=== PATIENT | male | born 2000 | race Caucasian/White ===

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

== ENCOUNTER 2022-03-18 17:40 | Emergency (ER) | payer MEDICAID, SELFPAY ==
--- NOTE | 2022-03-18 17:45 | XRR_ITS ---
PROCEDURE INFORMATION: Exam: XR Chest Exam date and time: 03/18/2022 6:42 PM Age: 21 years old Clinical indication: Other: Hematemsis; Additional info: Hematemesis TECHNIQUE: Imaging protocol: Radiologic exam of the chest. Views: 1 view. COMPARISON: CR (CHEST, ) 08/08/2021 8:43 PM FINDINGS: Limitations: Patient is rotated towards the right. Lungs: Visualized portions of the lungs are clear. Pleural spaces: Unremarkable. No pleural effusion. No pneumothorax. Heart/Mediastinum: Heart is within normal limits of size. Bones/joints: There are post surgical changes of posterior spinal fusion with pedicle screws and metallic rods unchanged from previous. XR/XR chest 1V portable [id number] IMPRESSION: No acute infiltrate.
[2022-03-18 17:47] VITALS: BP 92/64; PULSE 63; RESP 16; TEMP 36.6; O2SAT 95; BMI 21.7
--- NOTE | 2022-03-18 17:53 | W.ED.GIBLEED ---
HPI - GI Bleed General: Chief complaint: GI Bleed Stated complaint: GI bleed Time Seen by Provider: 03/18/22 17:53 Limitations: physical limitation History of Present Illness: Mr. Hernández is a 21-year-old male with reported history of cerebral palsy who presents to the emergency department due to hematemesis/coffee-ground emesis. Per chart review he had a similar episode in July 2021. History is otherwise limited by patient's baseline physical state and no supplemental information regarding amount, times, exacerbating, alleviating, or other factors is available. Review of Systems General: Reports: ROS unobtainable due to medical condition PFS ED PFSH: Medical History Cerebral palsy Gastritis Surgical History Surgical history unknown Social History Housing: [facility] Physical Exam Const: COMMON NORMALS: alert EXAM LIMITATIONS: physical limitations and other limitations HENMT: COMMON NORMALS: normocephalic and atraumatic HEAD & SCALP: normocephalic and atraumatic THROAT: posterior oropharynx normal Eye: COMMON NORMALS: conjunctivae normal CONJUNCTIVA: Yes conjunctivae normal SCLERA: sclerae normal Neck/C-Spine: COMMON NORMALS: supple GENERAL: Yes trachea midline Resp: COMMON NORMALS: normal respiratory effort and clear to auscultation bilaterally AUSCULTATION: clear to auscultation bilaterally Cardio: COMMON NORMALS: regular rate and regular rhythm RATE: regular rate RHYTHM: regular rhythm GI: COMMON NORMALS: Soft to palpation PALPATION: Yes Soft to palpation and No Tenderness to palpation present (GI) Extremity: GENERAL: Yes normal exam except as noted and No edema Neuro: SENSORIUM/ORIENTATION: Yes alert and No Orientation impaired Course ED course: - Patient was seen and evaluated by me at bedside - Patient placed on cardiac monitors, IV access obtained - Initial evaluation notable for exam as above. Patient presents with some dark brown emesis on clothing - Labs and xrays personally interpreted by me - Fluids, antiemetic, and proton pump inhibitor given - Labs notable for mild leukocytosis. Metabolic panel notable for some intravascular hemoconcentration which should improve with IV fluids. Repeat hemoglobin approximately 4 hours later similar given IV fluid administration. - Imaging notable for no lobar consolidation or pneumothorax on chest x-ray. No acute finding on CT chest abdomen pelvis. - Upon serial reexamination after treatment the patient was improved without recurrence of hematemesis. Patient does have similar history - Based on patient history, evaluation, and testing as interpreted the most likely cause of the patient's condition is hematemesis/GI bleed. - The results of ED evaluation were discussed with the patient's mother via telephone including possible disposition options. Given stability in hemoglobin and no recurrence she is comfortable with patient being discharged and to have outpatient follow-up for endoscopy. I discussed prescriptions and/or symptomatic cares (if applicable) including appropriate and responsible use, followup plan, and return precautions. - Patient discharged in satisfactory condition. Note: Click bubbles or prepopulated lopez in note writing are used for assistance with data collection and billing and are inherently more limited than narrative and other text portions of this note. Please use narrative for additional clinical history and defer to narrative/free test for any case of contradictory information. If information appears in only free text or click bubble it should be considered present or absent as reported. Please contact note typewriter aligner for clarifications of clinical information or contradictory information. MDM is a brief summary, contradictory or erroneous seeming information should be clarified and full note should be reviewed. Vital Signs: Vital signs: Vital Signs Temperature 97.9 F 03/18/22 17:47 Pulse Rate 105 H 03/18/22 23:00 Respiratory Rate 12 03/18/22 22:00 Blood Pressure 153/85 03/18/22 23:00 Pulse Oximetry 93 03/18/22 23:00 Oxygen Delivery Me thod 03/18/22 20:50 MDM - GI Bleed Medical Decision Making 21-year-old male with complex past medical history presenting with hematemesis. He did have history of similar related gastritis. Hemoglobin stable without recurrence of hematemesis while under ED observation. Discussed with patient's mother who is comfortable with outpatient follow-up. Strict return precautions given. Medical Records I reviewed the patient's medical records. Lab Data I reviewed the patient's lab results. : 03/18/22 22:05 03/18/22 18:16 Radiology Impressions Chest X-Ray 03/18/22 17:45 IMPRESSION: No acute infiltrate. Chest/Abdomen/Pelvis CT 03/18/22 18:31 IMPRESSION: 1. Postsurgical changes in the thoracic spine. 2. No acute findings in the chest IMPRESSION: No acute findings in the abdomen pelvis. Laboratory Results WBC 14.4 10^3/uL (4.5-13.0) H 03/18/22 18:16 RBC 5.55 10^6/uL (4.1-5.3) H 03/18/22 18:16 Hgb 13.4 g/dL (11.7-16.6) 03/18/22 22:05 Hct 42.7 % (42.0-52.0) 03/18/22 22:05 MCV 85.4 fl (80-94) 03/18/22 18:16 MCH 26.5 pg (28.0-34.0) L 03/18/22 18:16 MCHC 31.0 g/dL (30.0-36.0) 03/18/22 18:16 RDW 14.4 % (12.1-15.1) 03/18/22 18:16 Plt Count 375 10^3/cmm (130-400) 03/18/22 18:16 MPV 10.5 fL (7.4-10.4) H 03/18/22 18:16 Neut % (Auto) 78.8 % 03/18/22 18:16 Lymph % (Auto) 11.9 % 03/18/22 18:16 [place] % (Auto) 8.5 % 03/18/22 18:16 Eos % (Auto) 0.3 % 03/18/22 18:16 Baso % (Auto) 0.3 % 03/18/22 18:16 Neut # (Auto) 11.33 10^3/uL (1.8-8.0) H 03/18/22 18:16 Lymph # (Auto) 1.7 10^3/uL (1.5-6.5) 03/18/22 18:16 [place] # (Auto) 1.2 10^3/uL (0.2-0.9) H 03/18/22 18:16 Eos # (Auto) 0.1 10^3/uL (0.0-0.8) 03/18/22 18:16 Baso # (Auto) 0.1 10^3/uL (0.0-0.1) 03/18/22 18:16 Nucleated RBC % (auto) 0 % 03/18/22 18:16 Nucleated RBCs # 0.0 /100WBC 03/18/22 18:16 PT 14.00 SECONDS (12.1-14.9) 03/18/22 18:16 INR 1.05 (0.8-1.2) 03/18/22 18:16 APTT 25.2 SECONDS (23.9-36.7) 03/18/22 18:16 Sodium 148 mmol/L (136-145) H 03/18/22 18:16 Potassium 3.8 mmol/L (3.5-5.1) 03/18/22 18:16 Chloride 108 mmol/L (98-107) H 03/18/22 18:16 Carbon Dioxide 26 mmol/L (22-29) 03/18/22 18:16 Anion Gap 17.8 (5-19) 03/18/22 18:16 BUN 14 mg/dL (6-20) 03/18/22 18:16 Creatinine 0.4 mg/dL (0.7-1.2) L 03/18/22 18:16 GFR Calculation 277.1 mL/min (90-130) H 03/18/22 18:16 Glucose 123 mg/dL (65-115) H 03/18/22 18:16 Calculated Osmolality 308 mOsm/kg (285-295) H 03/18/22 18:16 Calcium 9.4 mg/dL (8.5-10.5) 03/18/22 18:16 Total Bilirubin 0.4 mg/dL (0.15-1.2) 03/18/22 18:16 AST 19 U/L (0-40) 03/18/22 18:16 ALT 33 U/L (0-41) 03/18/22 18:16 Alkaline Phosphatase 108 IU/L (40-130) 03/18/22 18:16 Total Protein 8.0 g/dL (6.6-8.7) 03/18/22 18:16 Albumin 4.4 g/dL (3.5-5.2) 03/18/22 18:16 Globulin 3.6 g/dL (1.3-4.6) 03/18/22 18:16 Blood Type O Positive 03/18/22 18:16 Rho(D) Type Positive 03/18/22 18:16 Antibody Screen Negative 03/18/22 18:16 Discharge Plan Discharge Patient Disposition: Home Clinical Impression: Coffee ground vomiting, Cerebral palsy, Gastritis Condition: Stable Prescriptions: New omeprazole 20 mg tablet,delayed release (DR/EC) 20 mg PO BID 30 Days Qty: 60 0RF No Action Prevacid 30 mg capsule,delayed release(DR/EC) 30 mg PO DAILY Qty: 30 0RF Zofran 4 mg tablet 4 mg PO Q6H PRN (Reason: nausea and vomiting) Qty: 10 0RF Discharge Orders: Discharge ED (Routine); Ordered 03/18/22 Ordered By: Ender Ga Referrals: Maritza Teixeira MD [Primary Care Provider] - Discharge Diet: Usual diet Discharge Activity: Resume usual activity Patient Instructions: Diet for Stomach Ulcers and Gastritis (ED), Hematemesis (ED) Activity Restrictions/Additional Instructions: Thank you for visiting the emergency department. You were seen and evaluated for coffee-ground emesis concerning for GI bleeding. The exact cause of the symptoms is unclear however, after discussion with your mother, does not require inpatient management at this time. I will message case management for follow-up for consideration of endoscopy. You should be contacted regarding this. Please follow-up with your primary care provider. Please return to the emergency department for recurrent symptoms, abnormal vital signs, or anything else that you are concerned about a feel needs emergency department evaluation. Coding Level of Care Code ED Tile Ditcher for Terrell Verma
[2022-03-18] MEDS: ondansetron 2 mg/ML SDV 2 mL 4 MG IVP (18:21)
[2022-03-18] MEDS: sodium chloride 0.9% 1,000 ML 999 ML IV (18:22)
[2022-03-18] MEDS: pantoprazole 40 mg SDV 80 MG IVP (18:22)
[2022-03-18 18:27] LABS: Basophils # 0.1 10^3/uL (0.0-0.1); Basophils % 0.3 %; Eosinophils # 0.1 10^3/uL (0.0-0.8); Eosinophils % 0.3 %; Hematocrit 47.4 % (42.0-52.0); Hemoglobin 14.7 g/dL (11.7-16.6); Lymphocytes # 1.7 10^3/uL (1.5-6.5); Lymphocytes % 11.9 %; Mean Corpuscular Hemoglobin 26.5 pg (28.0-34.0); Mean Corpuscular Volume 85.4 fl (80-94); Mean Platelet Volume 10.5 fL (7.4-10.4); Monocytes # 1.2 10^3/uL (0.2-0.9); Monocytes % 8.5 %; Neutrophils # 11.33 10^3/uL (1.8-8.0); Neutrophils % 78.8 %; Nucleated Red Blood Cells % 0 %; Platelet Count 375 10^3/cmm (130-400); Red Blood Count 5.55 10^6/uL (4.1-5.3); Red Cell Distribution Width 14.4 % (12.1-15.1); White Blood Count 14.4 10^3/uL (4.5-13.0)
--- NOTE | 2022-03-18 18:30 | PC.NURSE ---
Patient had one episode of projectile vomiting coffee ground emesis while this RN at bedside. RN and tech cleaned patient. Gown and bed linens were changed. Patient received nausea meds
--- NOTE | 2022-03-18 18:31 | CTR_ITS ---
PROCEDURE INFORMATION: Exam: CT Chest With Contrast; Diagnostic Exam date and time: 03/18/2022 7:51 PM Age: 21 years old Clinical indication: Abdominal pain; Sternal or substernal pain; Prior surgery; Additional info: Gi bleed TECHNIQUE: Imaging protocol: Diagnostic computed tomography of the chest with contrast. Radiation optimization: All CT scans at this facility use at least one of these dose optimization techniques: automated exposure control; mA and/or kV adjustment per patient size (includes targeted exams where dose is matched to clinical indication); or iterative reconstruction. Contrast material: OMNI 350; Contrast volume: 80 ml; Contrast route: INTRAVENOUS (IV); COMPARISON: CR (CHEST, ) 03/18/2022 6:42 PM RADIATION DOSE METRICS: Total DLP (mGy-cm): 930.05 FINDINGS: Limitations: Study somewhat limited due to streak artifact created by the patient being scanned with the arms at the sides. Lungs: Visualized portions of the lungs are clear. Pleural spaces: Unremarkable. No pneumothorax. No pleural effusion. Heart: Heart is within normal limits of size. Mediastinal space: There is no evidence of mediastinal fluid, masses, or gas. Lymph nodes: There is no evidence of lymphadenopathy. Vasculature: There is no thoracic aortic aneurysm or dissection. Bones/joints: There are postsurgical changes of thoracic spine fusion with posterior metallic rods and pedicle screws in the pedicles at multiple levels. There is mild scoliosis concave to the left. Soft tissues: Unremarkable. PROCEDURE INFORMATION: Exam: CT Abdomen And Pelvis With Contrast Exam date and time: 03/18/2022 7:51 PM Age: 21 years old Clinical indication: Abdominal pain; Sternal or substernal pain; Prior surgery; Additional info: Gi bleed TECHNIQUE: Imaging protocol: Computed tomography of the abdomen and pelvis with contrast. Radiation optimization: All CT scans at this facility use at least one of these dose optimization techniques: automated exposure control; mA and/or kV adjustment per patient size (includes targeted exams where dose is matched to clinical indication); or iterative reconstruction. Contrast material: OMNI 350; Contrast volume: 80 ml; Contrast route: INTRAVENOUS (IV); COMPARISON: CT abdomen pelvis w con* [id number] 08/08/2021 11:01 PM RADIATION DOSE METRICS: Total DLP (mGy-cm): 930.05 FINDINGS: Limitations: Study somewhat limited due to streak artifact created by the patient being scanned with the arms at the sides. There is also streak artifact caused by the metallic spinal hardware. Tubes, catheters and devices: There is a [employer] shunt catheter loops in the pelvis. Liver: There is no focal abnormality within the liver. Gallbladder and bile ducts: The gallbladder is normal. Pancreas: The pancreas is normal. Spleen: The spleen is normal. Adrenal glands: The adrenal glands are normal. Kidneys and ureters: The kidneys are normal. There is no evidence of hydronephrosis. There is no evidence of renal or ureteral calcifications. Stomach and bowel: There is no evidence of colitis/diverticulitis. There is no evidence of intestinal obstruction. Appendix: A normal appendix is identified. A normal appendix is identified. Intraperitoneal space: There is no evidence of free intraperitoneal fluid. Vasculature: Unremarkable. No abdominal aortic aneurysm. Lymph nodes: There is no evidence of lymphadenopathy. Urinary bladder: Unremarkable as visualized. Reproductive: Unremarkable as visualized. Bones/joints: There are postsurgical changes of old healed bilateral femoral osteotomies with internal fixation with metallic hardware. There are stable findings of thoracolumbar posterior spinal fusion with posterior metallic rods and pedicle screws in the pedicles extending to the L4 level. Soft tissues: Unremarkable. CT/CT chest abd pel w con* IMPRESSION: 1. Postsurgical changes in the thoracic spine. 2. No acute findings in the chest IMPRESSION: No acute findings in the abdomen pelvis.
[2022-03-18 18:34] VITALS: BP 164/91; PULSE 102; RESP 20; O2SAT 95
[2022-03-18 18:45] LABS: INR 1.05 (0.8-1.2)
[2022-03-18 18:46] LABS: Partial Thromboplastin Time 25.2 SECONDS (23.9-36.7)
[2022-03-18 18:54] LABS: Alanine Aminotransferase 33 U/L (0-41); Albumin Level 4.4 g/dL (3.5-5.2); Alkaline Phosphatase 108 IU/L (40-130); Aspartate Amino Transferase 19 U/L (0-40); Blood Urea Nitrogen 14 mg/dL (6-20); Calcium 9.4 mg/dL (8.5-10.5); Carbon Dioxide 26 mmol/L (22-29); Chloride 108 mmol/L (98-107); Globulin 3.6 g/dL (1.3-4.6); Glomerular Filtration Rate 277.1 mL/min (90-130); Glucose 123 mg/dL (65-115); Osmolality Calculated 308 mOsm/kg (285-295); Sodium 148 mmol/L (136-145); Total Bilirubin 0.4 mg/dL (0.15-1.2)
--- NOTE | 2022-03-18 19:02 | PC.NURSE ---
Report given to Ronda Monterroso
[2022-03-18 19:04] LABS: Anion Gap 17.8 (5-19); Potassium 3.8 mmol/L (3.5-5.1)
[2022-03-18] MEDS: iohexol 350 mg/mL 100 mL Btl IV (20:07)
[2022-03-18 20:50] VITALS: BP 125/79; PULSE 97; O2SAT 92
[2022-03-18 22:00] VITALS: BP 142/83; PULSE 99; RESP 12; O2SAT 87
[2022-03-18 22:43] LABS: Hematocrit 42.7 % (42.0-52.0); Hemoglobin 13.4 g/dL (11.7-16.6)
[2022-03-18 23:00] VITALS: BP 153/85; PULSE 105; O2SAT 93
--- NOTE | 2022-03-21 13:42 | DCPLANNER ---
Addendum entered by Danae Costello 04/05/22 16:43: Patient had a follow up appointment scheduled with general surgery - appointment was cancelled Addendum entered by Danae Costello 03/24/22 16:22: Patient has a follow up appointment scheduled for Wednesday March 30, 2022 at 3:[address] Sigala at [facility]. Clinic will call patient with appointment information. Original Note: manager research development had message to schedule a follow up appointment for patient with general surgery. manager research development sent patients information to the front office staff at general surgery. Patients information will be printed and reviewed. Clinic will call patient with appointment information.
== END 2022-03-19 04:21 | disposition home or self-care (01) ==
PROVIDERS: Emergency Provider Emergency Medicine; PCP Specialist
DX: K29.70 Gastritis, unspecified, without bleeding (principal); G80.9 Cerebral palsy, unspecified; R11.10 Vomiting, unspecified
CPT/HCPCS: 71045; 71260; 74177; 80053; 85014; 85018; 85025; 85610; 85730; 86850; 86900; 96374; 96375; 99285; C9113; J2405; J7030; Q9967

== ENCOUNTER 2022-05-08 14:07 | Emergency (ER) | payer MEDICAID, SELFPAY ==
[2022-05-08 14:08] VITALS: BP 140/106; PULSE 110; RESP 16; TEMP 36.6; O2SAT 97; BMI 19.3
--- NOTE | 2022-05-08 14:25 | W.ED.NAVMDI ---
HPI - Nausea/Vomiting/Diarrhea General: Chief complaint: Nausea/Vomiting/Diarrhea Stated complaint: dark emesis Time Seen by Provider: 05/08/22 14:22 Source: EMS and other (LTCF) Mode of arrival: EMS Limitations: altered mental status History of Present Illness: This patient was transferred to our emergency department from a local [facility] care facility. Patient is a TBI patient and is nonverbal and otherwise requires total care. He was noted by staff to have dark emesis on more than 1 occasion this morning and no interest in eating. He was transported by EMS to our facility for evaluation of that condition. Review of past chart reveals that he has had an episode of gastritis with similar presentation treated back at the [facility]. MD elicited complaint: vomiting Description of vomiting: coffee grounds Review of Systems General: Reports: ROS unobtainable due to medical condition and ROS unobtainable due to mental status [facility] PFSH: Medical History Cerebral palsy Gastritis Surgical History Surgical history unknown Social History Housing: Prison Physical Exam Narrative: EXAM NARRATIVE: Patient is noted to be alert with spontaneous eye opening. He does verbalize nonsensical responses to questions and stimuli. Const: COMMON NORMALS: no acute distress NUTRITIONAL APPEARANCE: thin ORIENTATION/CONSCIOUSNESS: Yes awake HENMT: COMMON NORMALS: normocephalic, atraumatic, moist oral mucous membranes and oropharynx normal HEAD & SCALP: normocephalic and atraumatic Eye: COMMON NORMALS: Equal, round and reactive pupils present, conjunctivae normal and no scleral icterus CONJUNCTIVA: Yes conjunctivae normal PUPIL: Yes Equal, round and reactive pupils present Neck/C-Spine: COMMON NORMALS: supple and no JVD Chest: COMMONS NORMALS: normal inspection of the chest Resp: COMMON NORMALS: normal respiratory effort and clear to auscultation bilaterally AUSCULTATION: clear to auscultation bilaterally Cardio: COMMON NORMALS: no JVD, regular rate, No murmurs present (Cardio) and Peripheral pulses 2+ throughout RATE: regular rate PERIPHERAL PULSES: Peripheral pulses 2+ throughout GI: COMMON NORMALS: Normal to inspection, nondistended, normoactive bowel sounds present, Soft to palpation, non-tender and no masses PALPATION: Yes Soft to palpation Back/Pelvis: OTHER: He has some postural curvature in his axial spine. No step-offs noted. Extremity: NARRATIVE EXTREMITY EXAM: He has noted to be in a flexion predominant body habitus with flexion at the hip as well as the knee and the wrists and elbows. No deformity otherwise. Decreased muscle bulk noted. Skin: COMMON NORMALS: no rashes or lesions noted, no jaundice and no petechiae GENERAL SKIN EXAM: no rashes or lesions noted Course Reevaluation(s): Reevaluation #1: He remained stable. No more emesis since shortly after arrival to the emergency department. Plan will be to observe him in the emergency department to ensure that he remains stable without any ongoing emesis. Hemoglobin is reassuring at this time. Time: 15:54 Reevaluation #2: Continues to remain alert at his usual baseline mentation. No more emesis noted in the last hour. Again review of his laboratories revealed him appreciably within his normal range. Patient has been observed in the emergency department and evaluated I think it is reasonable for us to put him back on a proton pump inhibitor with an H2 dmitry to control his symptoms for the next 30 days. This is similar to prior occurrences that he is had in the past. Do not feel that any prolonged emergency department evaluation or observation or hospitalization is indicated at this time as he is returning back to a controlled environment. Time: 16:41 Vital Signs: Vital signs: Vital Signs Temperature 97.8 F 05/08/22 14:08 Pulse Rate 110 H 05/08/22 14:08 Respiratory Rate 16 05/08/22 14:08 Blood Pressure 140/106 05/08/22 14:08 Pulse Oximetry 97 05/08/22 14:08 Oxygen Delivery Me thod 05/08/22 14:08 MDM - Nausea/Vomiting/Diarrhea Medical Decision Making Patient with history of TBI with requires total care at a local long-term care facility was noted to have episodes of dark emesis. Patient was evaluated in the emergency department and found to be stable without any ongoing emesis. Hemoglobin and other parameters were within the patient's prior findings and this current history is recurrence of prior episodes of gastritis with hematemesis. We will go ahead and plan for empiric therapy and returning back to long-term care facility with return precautions. Lab Data : 05/08/22 14:37 05/08/22 14:37 Laboratory Results WBC 15.3 10^3/uL (4.5-13.0) H 05/08/22 14:37 RBC 5.39 10^6/uL (4.1-5.3) H 05/08/22 14:37 Hgb 13.8 g/dL (11.7-16.6) 05/08/22 14:37 Hct 44.4 % (42.0-52.0) 05/08/22 14:37 MCV 82.4 fl (80-94) 05/08/22 14:37 MCH 25.6 pg (28.0-34.0) L 05/08/22 14:37 MCHC 31.1 g/dL (30.0-36.0) 05/08/22 14:37 RDW 14.1 % (12.1-15.1) 05/08/22 14:37 Plt Count 438 10^3/cmm (130-400) H 05/08/22 14:37 MPV 10.9 fL (7.4-10.4) H 05/08/22 14:37 Neut % (Auto) 85.1 % 05/08/22 14:37 Lymph % (Auto) 7.5 % 05/08/22 14:37 Whiteside % (Auto) 6.7 % 05/08/22 14:37 Eos % (Auto) 0.1 % 05/08/22 14:37 Baso % (Auto) 0.3 % 05/08/22 14:37 Neut # (Auto) 13.02 10^3/uL (1.8-8.0) H 05/08/22 14:37 Lymph # (Auto) 1.1 10^3/uL (1.5-6.5) L 05/08/22 14:37 Whiteside # (Auto) 1.0 10^3/uL (0.2-0.9) H 05/08/22 14:37 Eos # (Auto) 0.0 10^3/uL (0.0-0.8) 05/08/22 14:37 Baso # (Auto) 0.1 10^3/uL (0.0-0.1) 05/08/22 14:37 Nucleated RBC % (auto) 0 % 05/08/22 14:37 Nucleated RBCs # 0.0 /100WBC 05/08/22 14:37 Sodium 147 mmol/L (136-145) H 05/08/22 14:37 Potassium 3.2 mmol/L (3.5-5.1) L 05/08/22 14:37 Chloride 103 mmol/L (98-107) 05/08/22 14:37 Carbon Dioxide 30 mmol/L (22-29) H 05/08/22 14:37 Anion Gap 17.2 (5-19) 05/08/22 14:37 BUN 9 mg/dL (6-20) 05/08/22 14:37 Creatinine 0.5 mg/dL (0.7-1.2) L 05/08/22 14:37 GFR Calculation 214.2 mL/min (90-130) H 05/08/22 14:37 Glucose 127 mg/dL (65-115) H 05/08/22 14:37 POC Glucose 132 mg/dL (70-110) H 05/08/22 14:42 Calculated Osmolality 304 mOsm/kg (285-295) H 05/08/22 14:37 Calcium 9.8 mg/dL (8.5-10.5) 05/08/22 14:37 Total Bilirubin 0.4 mg/dL (0.15-1.2) 05/08/22 14:37 AST 18 U/L (0-40) 05/08/22 14:37 ALT 30 U/L (0-41) 05/08/22 14:37 Alkaline Phosphatase 105 U/L (40-130) 05/08/22 14:37 Total Protein 8.2 g/dL (6.6-8.7) 05/08/22 14:37 Albumin 4.8 g/dL (3.5-5.2) 05/08/22 14:37 Globulin 3.4 g/dL (1.3-4.6) 05/08/22 14:37 Blood Type O Positive 05/08/22 14:37 Rho(D) Type Positive 05/08/22 14:37 Antibody Screen Negative 05/08/22 14:37 Discharge Plan Discharge Patient Disposition: LTCH w Plan Readm Clinical Impression: Gastritis, Cerebral palsy Condition: Stable Prescriptions: New famotidine [Pepcid] 40 mg tablet 40 mg PO BID 56 Days Qty: 112 0RF No Action Prevacid 30 mg capsule,delayed release(DR/EC) 30 mg PO DAILY Qty: 30 0RF Zofran 4 mg tablet 4 mg PO Q6H PRN (Reason: nausea and vomiting) Qty: 10 0RF Discharge Orders: Discharge ED (Routine); Ordered 05/08/22 Ordered By: Adriel Marcus Referrals: Maritza Teixeira MD [Primary Care Provider] - Discharge Diet: Advance as tolerated and Full LIquid Activity Restrictions/Additional Instructions: He is to continue the Prevacid in addition to Pepcid twice daily for the next 8 weeks. Have his attending physician reevaluate his medications in 2 months. He may return to the emergency department if he develops any new or other concerning symptoms at any time. Coding Level of Care Code ED Photovoltaic Installation Technician for Terrell Fwtamera Exam Comprehensive
[2022-05-08] MEDS: sodium chloride 0.9% 1,000 ML 75 ML IV (14:52)
[2022-05-08] MEDS: pantoprazole 40 mg SDV 80 MG IVP (14:52)
[2022-05-08 14:56] LABS: Basophils # 0.1 10^3/uL (0.0-0.1); Basophils % 0.3 %; Eosinophils % 0.1 %; Hematocrit 44.4 % (42.0-52.0); Hemoglobin 13.8 g/dL (11.7-16.6); Lymphocytes # 1.1 10^3/uL (1.5-6.5); Lymphocytes % 7.5 %; Mean Corpuscular HGB Conc 31.1 g/dL (30.0-36.0); Mean Corpuscular Hemoglobin 25.6 pg (28.0-34.0); Mean Corpuscular Volume 82.4 fl (80-94); Mean Platelet Volume 10.9 fL (7.4-10.4); Monocytes % 6.7 %; Neutrophils # 13.02 10^3/uL (1.8-8.0); Neutrophils % 85.1 %; Nucleated Red Blood Cells % 0 %; Platelet Count 438 10^3/cmm (130-400); Red Blood Count 5.39 10^6/uL (4.1-5.3); Red Cell Distribution Width 14.1 % (12.1-15.1); White Blood Count 15.3 10^3/uL (4.5-13.0)
[2022-05-08 14:59] LABS: Glucose Point of Care 132 mg/dL (70-110)
[2022-05-08 15:14] LABS: Alanine Aminotransferase 30 U/L (0-41); Albumin Level 4.8 g/dL (3.5-5.2); Alkaline Phosphatase 105 U/L (40-130); Anion Gap 17.2 (5-19); Aspartate Amino Transferase 18 U/L (0-40); Blood Urea Nitrogen 9 mg/dL (6-20); Calcium 9.8 mg/dL (8.5-10.5); Carbon Dioxide 30 mmol/L (22-29); Chloride 103 mmol/L (98-107); Globulin 3.4 g/dL (1.3-4.6); Glomerular Filtration Rate 214.2 mL/min (90-130); Glucose 127 mg/dL (65-115); Osmolality Calculated 304 mOsm/kg (285-295); Potassium 3.2 mmol/L (3.5-5.1); Sodium 147 mmol/L (136-145); Total Bilirubin 0.4 mg/dL (0.15-1.2); Total Protein 8.2 g/dL (6.6-8.7)
--- NOTE | 2022-05-08 17:08 | PC.NURSE ---
REPORT CALLED TO AMBREEN ASTORGA AT [facility].
[2022-05-08 19:41] VITALS: BP 139/99; PULSE 99; RESP 18; O2SAT 97
== END 2022-05-08 19:46 ==
PROVIDERS: Emergency Provider Emergency Medicine; PCP Specialist
DX: K29.70 Gastritis, unspecified, without bleeding (principal); G80.9 Cerebral palsy, unspecified
CPT/HCPCS: 36416; 80053; 82962; 85025; 86850; 86900; 96374; 99284; C9113; J7030

== ENCOUNTER → 2022-05-12 14:05 | Outpatient (BNVA) | payer MEDICAID, SELFPAY | PROVIDERS: PCP Family Medicine; Visit Provider Surgery | DX: K29.70 Gastritis, unspecified, without bleeding (principal); R11.2 Nausea with vomiting, unspecified | CPT/HCPCS: 99203 ==

== ENCOUNTER 2022-05-19 06:17 | Day surgery (SDC) | payer MEDICAID, SELFPAY ==
[2022-05-17 13:22] VITALS: BMI 21.3
[2022-05-19 07:00] VITALS: BP 117/64; PULSE 103; RESP 18; TEMP 36.6; O2SAT 96
[2022-05-19] MEDS: sodium chloride 0.9% 1,000 ML 30 ML IV (07:00)
--- NOTE | 2022-05-19 07:21 | W.PM.OPSUD ---
Surgery/Procedure H&P Update DATE OF PROCEDURE: May 19, 2022 DATE H&P PERFORMED: 05/12/22 H&P UPDATE INFORMATION: I have reviewed H&P completed within last 30 days, I have examined patient prior to procedure and Changes to prior documentation as noted here (I was able to get a hold of patient's mom over the phone in the presence of the nursing staff to obtain an informed consent for the EGD. And mom did agree to proceed accordingly.) PREOP DIAGNOSIS: Hematemesis PRIMARY INDICATION FOR PROCEDURE: The same PLANNED PROCEDURE: Operation Date: 05/19/22 08:00 Proposed Procedures p EGD 78131,K29.70(Not Applicable) - Hernan Sigala MD
[2022-05-19 08:12] VITALS: BP 99/61; PULSE 78; RESP 12; TEMP 36.1; O2SAT 96
[2022-05-19 08:29] VITALS: BP 129/81; PULSE 79; RESP 16; O2SAT 97
--- NOTE | 2022-05-19 14:41 | ANE.PACU2 ---
Inpatient post-anesthesia follow up: Airway intact: Yes Vital signs: Temperature 97 F Pulse Rate 79 Respiratory Rate 16 Blood Pressure 129/81 Pulse Oximetry 97 Oxygen Delivery Me thod Room Air Oxygen Flow Rate Fraction of Inspir ed Oxygen Hydration adequate: Yes Nausea and vomiting: No Pain level: 1 Mental status: Baseline
--- NOTE | 2022-05-19 14:42 | ANES.PREANE2 ---
Pre-Anesthetic Assessment Height/Weight: Height 1.68 m Weight 59.874 kg Temp Pulse Resp BP Pulse Ox O2 Del Method 97 F L 79 16 129/81 97 05/19/22 08:12 05/19/22 08:29 05/19/22 08:29 05/19/22 08:29 05/19/22 08:29 05/19/22 08:29 Preop Diagnosis: Hematemesis Operation Date: 05/19/22 08:00 Proposed Procedures p EGD 39624,K29.70(Not Applicable) - Hernan Sigala MD Familial anesthetic complications: none Was Beta Anatoly taken within 24 hours: N/A Was Clonidine taken within 24 hours: N/A Last intake: Intake Last Liquid Date 05/18/22 Last Solid Date 05/18/22 Social No alcohol and No tobacco Exam clear to auscultation bilaterally and regular rate & rhythm Airway Submandibular: within normal limits Cervical ROM: within normal limits Mallampati: Class II GI Gastroesophageal Reflux Disease Neuropsych CP Anesthetic Plan ASA status: 3 Anesthesia: MAC Medications/Allergies Home Medications Medication Instructions Recorded Confirmed Last Taken Type famotidine 40 mg tablet (Pepcid) 40 mg PO BID 8 weeks #112 tabs 05/08/22 05/19/22 05/18/22 Rx bisacodyl 10 mg rectal suppository 10 mg SC DAILY PRN Constipation 05/12/22 05/19/22 05/18/22 History melatonin 1 mg/mL oral liquid 1 mg PO DAILY 05/12/22 05/19/22 05/18/22 History pantoprazole 40 mg granules 40 mg PO DAILY 05/12/22 05/19/22 05/18/22 History delayed-release for susp in packet (Protonix) polyethylene glycol 3350 8.5 gram 17 g PO DAILY 05/12/22 05/19/22 05/18/22 History oral powder packet ondansetron HCl 4 mg tablet 4 mg PO Q8H PRN nausea and vomiting 05/17/22 05/19/22 05/18/22 History Allergies Allergy/AdvReac Type Severity Reaction Status Date / Time metoclopramide [From Reglan] Allergy seizure Verified 05/19/22 06:59 PFSH Anesthesia Medical History Cerebral palsy Gastritis Surgical History Surgical history unknown Social History Smoking and tobacco status: never smoked Housing: [facility] Data Anesthesia Cardiac Studies: No Data to Display
== END 2022-05-19 08:50 | disposition home or self-care (01) ==
PROVIDERS: PCP Family Medicine; Visit Provider Surgery
PROC: 0DJ08ZZ Inspection of Upper Intestinal Tract, Via Natural or Artificial Opening Endoscopic (ICD-10-PCS; CPT 43235; principal; 2022-05-19 08:00)
DX: R11.2 Nausea with vomiting, unspecified (principal); K21.00 Gastro-esophageal reflux disease with esophagitis, without bleeding; K44.9 Diaphragmatic hernia without obstruction or gangrene; G80.9 Cerebral palsy, unspecified
CPT/HCPCS: 43235; J2704; J7030

== ENCOUNTER 2023-07-18 09:42 | Inpatient (IN) | payer MEDICAID, SELFPAY ==
[2023-07-18] VITALS (68 sets, daily range): BP systolic 89–162; BP diastolic 46–92; PULSE 85–127; RESP 7–22; TEMP 36.8–37.6; O2SAT 93–100
--- NOTE | 2023-07-18 09:44 | XRR_ITS ---
PROCEDURE INFORMATION: Exam: XR Chest Exam date and time: 07/18/2023 9:56 AM Age: 22 years old Clinical indication: Cough and dyspnea; Patient HX: N/v; Additional info: Dyspnea/cough TECHNIQUE: Imaging protocol: Radiologic exam of the chest. Views: 1 view. COMPARISON: 1. CT chest abdpel w/*[id number] 03/18/2022 7:51 PM 2. CR XR chest 1V portable [id number] 03/18/2022 6:42 PM FINDINGS: Lungs: Unremarkable. No consolidation. Pleural spaces: Unremarkable. No pleural effusion. No pneumothorax. Heart/Mediastinum: Unremarkable. No cardiomegaly. Bones/joints: Mild dextroconvex spinal curvature with partially visualized instrumented posterior fusion hardware. XR/XR chest 1V portable [id number] IMPRESSION: No acute findings.
--- NOTE | 2023-07-18 10:19 | PC.PHAR ---
Addendum entered by Sue Vuong 07/18/23 11:08: mirian states the pt has had no medications today Original Note: pt is from [facility] [phone]-mirian nurse from [facility] will fax mar and tar
[2023-07-18] MEDS: sodium chloride 0.9% 1,000 ML 999 ML IV ×2 (10:30→13:08)
[2023-07-18] MEDS: pantoprazole 40 mg SDV 80 MG IVP (10:37)
[2023-07-18] MEDS: ondansetron 2 mg/ML SDV 2 mL 4 MG IVP (10:37)
[2023-07-18 10:38] LABS: Basophils # 0.1 10^3/uL (0.0-0.1); Basophils % 0.4 %; Eosinophils % 0.3 %; Hematocrit 44.6 % (37-53); Lymphocytes # 1.1 10^3/uL (1.5-6.5); Lymphocytes % 9.5 %; Mean Corpuscular HGB Conc 29.1 g/dL (30-55); Mean Corpuscular Hemoglobin 22.2 pg (27-33); Mean Corpuscular Volume 76.2 fl (82-101); Mean Platelet Volume 10.4 fL (7.4-10.4); Monocytes # 0.8 10^3/uL (0.2-0.9); Monocytes % 6.7 %; Neutrophils # 9.31 10^3/uL (1.8-8.0); Neutrophils % 82.7 %; Nucleated Red Blood Cells % 0 %; Platelet Count 354 10^3/cmm (157-399); Red Blood Count 5.85 10^6/uL (3.85-5.65); Red Cell Distribution Width 18.4 % (12.1-15.1); White Blood Count 11.25 10^3/uL (4.5-13.0)
--- NOTE | 2023-07-18 10:39 | CT_ITS ---
WS: [id number] CT ABDOMEN AND PELVIS WITH CONTRAST HISTORY: Abdominal pain, nausea, vomiting and diarrhea. TECHNIQUE: Imaging performed of the abdomen and pelvis with IV contrast. Single phase imaging of the abdomen. Coronal and sagittal reformats are submitted. All CT scans at [facility] use at [facility] one of these dose optimization techniques: automated exposure control; mA and/or kV adjustment per patient size (includes targeted exams where dose is matched to clinical indication); or iterative re construction. IV CONTRAST: Omnipaque 350; 100 mL IV. Oral contrast: No DLP: 546.92 mGy.cm COMPARISON: 03/18/2022 Lower thorax: Lung bases are clear. Heart is normal size. Small hiatal hernia. Liver/biliary system: Normal size with no intrahepatic dilatation. Gallbladder: Normal. No gallstones or wall thickening. No pericholecystic fluid. Pancreas: Normal size pancreas and pancreatic duct. No adjacent inflammation. Spleen: Normal size spleen. No mass or infarct. Adrenal glands: Normal. Right kidney: Normal. Left kidney: Normal. Aorta: Normal. Lymphadenopathy: None. Free fluid: None. GI tract: Nondistended stomach. No small bowel obstruction. Normal colon. Normal appendix. Abdominal wall: There is a small amount of air at the level of the umbilicus. This air tracks through the abdominal wall to the stomach antrum. This would not be causing obstruction but may be causing s ome discomfort. There is not a lot of inflammation. Pelvis: There is no free fluid in the pelvis. Urinary bladder is well distended. Bones: Extensive thoracolumbar fusion hardware. IMPRESSION: 1. No GI tract obstruction. No appendicitis. 2. There is a small amount of air at the umbilicus which does appear to be contiguous with the stoma ch antrum. This is probably a small knuckle of the stomach wall extending through the abdominal wall defect. This has been present on prior studies. There is not a lot of inflammation and this would not be causing a significant obstruction. The amount of air is more pronounced today than on the prior e xaminations from 2020 and 2021. 3. Small hiatal hernia.
[2023-07-18 10:53] LABS: Alanine Aminotransferase 25 U/L (0-41); Albumin Level 4.5 g/dL (3.5-5.2); Alkaline Phosphatase 124 U/L (40-130); Anion Gap 16.8 (5-19); Aspartate Amino Transferase 15 U/L (0-40); Blood Urea Nitrogen 17 mg/dL (6-20); Calcium 9.5 mg/dL (8.5-10.5); Carbon Dioxide 28 mmol/L (22-29); Chloride 108 mmol/L (98-107); Globulin 3.7 g/dL (1.3-4.6); Glomerular Filtration Rate 274.3 mL/min (90-130); Glucose 112 mg/dL (65-115); Lipase 140 U/L (13-60); Osmolality Calculated 310 mOsm/kg (285-295); Potassium 3.8 mmol/L (3.5-5.1); Sodium 149 mmol/L (136-145); Total Bilirubin 0.4 mg/dL (0.15-1.2); Total Protein 8.2 g/dL (6.6-8.7)
[2023-07-18 10:54] LABS: Lactic Sepsis W/Reflex 1.7 mmol/L (0.5-2.2)
--- NOTE | 2023-07-18 11:21 | ED_ITS ---
HPI - Nausea/Vomiting/Diarrhea 2 General: Chief complaint: Nausea/Vomiting/Diarrhea Stated complaint: N/V History of TBI Time Seen by Provider: 07/18/23 09:44 Source: patient Mode of arrival: ambulatory History of Present Illness: 22-year-old male presents emergency room via EMS from local [facility] with complaints of persistent nausea and vomiting and episode of coffee-ground emesis shortly after arriving here. Had a couple episodes at the [facility] as well. Patient has a history of traumatic brain injury. He is unable to contribute anything to his history. He is nonverbal as a result of his head injury. MD elicited complaint: nausea and vomiting Onset (ago): hour(s) Description of vomiting: coffee grounds Review of Systems 2 General: Reports: ROS unobtainable due to medical condition PFSH ED 2 PFSH: Medical History Cerebral palsy Gastritis Surgical History Hx of brain surgery Surgical history unknown Social History Smoking and tobacco/nicotine status: never used tobacco/nicotine Housing: [facility] Physical Exam 2 HENMT: COMMON NORMALS: normocephalic, atraumatic and hearing grossly normal bilaterally HEAD & SCALP: normocephalic and atraumatic Resp: COMMON NORMALS: normal respiratory effort, No retractions, No use of accessory muscles and clear to auscultation bilaterally AUSCULTATION: clear to auscultation bilaterally Cardio: COMMON NORMALS: regular rate, regular rhythm and No murmurs present (Cardio) RATE: regular rate RHYTHM: regular rhythm GI: COMMON NORMALS: Soft to palpation and No hepatosplenomegaly present A USCULTATION: Yes normoactive bowel sounds PALPATION: Yes Soft to palpation, No Tenderness to palpation present (GI), No Guarding due to palpation present (GI) and Yes No hepatosplenomegaly present Extremity: OTHER: Contractures of the extremities upper and lower Skin: COMMON NORMALS: no rashes or lesions noted GENERAL SKIN EXAM: no rashes or lesions noted Course 2 Vital Signs: Vital signs: Vital Signs Temperature 98.3 F 07/20/23 23:38 Pulse Rate 68 07/21/23 00:45 Respiratory Rate 18 12/08/23 00:45 Blood Pressure 107/68 07/21/23 00:45 Pulse Oximetry 95 07/21/23 00:45 Oxygen Delivery Me thod Room Air 07/20/23 18:57 MDM - Nausea/Vomiting/Diarrhea Medical Decision Making Admitted for upper GI bleed with acute anemia. Patient has been typed and screened consult surgery for EGD. Medical Records I reviewed the patient's medical records. Lab Data I reviewed the patient's lab results. 07/20/23 13:00 07/19/23 06:26 Radiology Impressions Abdomen/Pelvis CT 07/20/23 02:51 IMPRESSION: 1. There is a metallic foreign body within the rectum measuring approximately 2.0 cm, previously seen within the sigmoid colon on 07/18/2023 CT. 2. No free air or free fluid to suggest bowel perforation. No other acute findings. Chest X-Ray 07/20/23 15:37 IMPRESSION: No acute findings. Laboratory Results WBC 11.25 10^3/uL (4.5-13.0) 07/18/23 10:15 RBC 5.85 10^6/uL (3.85-5.65) H 07/18/23 10:15 Hgb 11.50 g/dL (13.2-15.6) L 07/18/23 13:15 Hct 44.6 % (37-53) 07/18/23 10:15 MCV 76.2 fl (82-101) L 07/18/23 10:15 MCH 22.2 pg (27-33) L 07/18/23 10:15 MCHC 29.1 g/dL (30-55) L 07/18/23 10:15 RDW 18.4 % (12.1-15.1) H 07/18/23 10:15 Plt Count 354 10^3/cmm (157-399) 07/18/23 10:15 MPV 10.4 fL (7.4-10.4) 07/18/23 10:15 Neut % (Auto) 82.7 % 07/18/23 10:15 Lymph % (Auto) 9.5 % 07/18/23 10:15 [place] % (Auto) 6.7 % 07/18/23 10:15 Eos % (Auto) 0.3 % 07/18/23 10:15 Baso % (Auto) 0.4 % 07/18/23 10:15 Neut # (Auto) 9.31 10^3/uL (1.8-8.0) H 07/18/23 10:15 Lymph # (Auto) 1.1 10^3/uL (1.5-6.5) L 07/18/23 10:15 [place] # (Auto) 0.8 10^3/uL (0.2-0.9) 07/18/23 10:15 Eos # (Auto) 0.0 10^3/uL (0.0-0.8) 07/18/23 10:15 Baso # (Auto) 0.1 10^3/uL (0.0-0.1) 07/18/23 10:15 Nucleated RBC % (auto) 0 % 07/18/23 10:15 Nucleated RBCs # 0.0 /100WBC 07/18/23 10:15 Sodium 149 mmol/L (136-145) H 07/18/23 10:15 Potassium 3.8 mmol/L (3.5-5.1) 07/18/23 10:15 Chloride 108 mmol/L (98-107) H 07/18/23 10:15 Carbon Dioxide 28 mmol/L (22-29) 07/18/23 10:15 Anion Gap 16.8 (5-19) 07/18/23 10:15 BUN 17 mg/dL (6-20) 07/18/23 10:15 Creatinine 0.4 mg/dL (0.7-1.2) L 07/18/23 10:15 GFR Calculation 274.3 mL/min (90-130) H 07/18/23 10:15 Glucose 112 mg/dL (65-115) 07/18/23 10:15 Calculated Osmolality 310 mOsm/kg (285-295) H 07/18/23 10:15 Lactic Acid 1.7 mmol/L (0.5-2.2) 07/18/23 10:15 Calcium 9.5 mg/dL (8.5-10.5) 07/18/23 10:15 Total Bilirubin 0.4 mg/dL (0.15-1.2) 07/18/23 10:15 AST 15 U/L (0-40) 07/18/23 10:15 ALT 25 U/L (0-41) 07/18/23 10:15 Alkaline Phosphatase 124 U/L (40-130) 07/18/23 10:15 Total Protein 8.2 g/dL (6.6-8.7) 07/18/23 10:15 Albumin 4.5 g/dL (3.5-5.2) 07/18/23 10:15 Globulin 3.7 g/dL (1.3-4.6) 07/18/23 10:15 Lipase 140 U/L (13-60) H 07/18/23 10:15 Gastric Occult Blood Positive (Negative) H 07/18/23 11:00 Blood Type O Positive 07/18/23 13:44 Rho(D) Type Rh positive 07/18/23 13:44 Antibody Screen Negative 07/18/23 13:44 Crossmatch See Detail 07/18/23 13:44 All radiology interpretation(s) finalized by discharge Discharge Plan Discharge Patient Disposition: Admitted As Inpatient Admit Provider: Bernardino Bowens Clinical Impression: Upper GI bleed, Acute anemia, Cerebral palsy, Nausea and vomiting Condition: Stable Coding Level of Care Code ED Bead Builder for Terrell Verma
[2023-07-18 11:41] LABS: Gastricult Occult Blood Positive (Negative)
[2023-07-18] MEDS: iohexol 350 mg/mL 500 mL Btl (per mL) IV (11:43)
[2023-07-18] MEDS: piperacillin-tazobactam 3.375 GM in sodium chloride 0.9% (plus) 50 ML IV (13:08)
--- NOTE | 2023-07-18 13:46 | P.HP_ITS ---
Providers/Chief Complaint 2 Primary Care Provider: José Carlson Jr, MD Chief Complaint: N/V History of TBI History of Present Illness Mikal Hernández is a 22 year old male with cerebral palsy, [place] resident at [facility], Hx UGIB and hematemesis was brought in due to finding of coffee- ground emesis with red-brown contents in emesis. In ER tachycardic 115 bpm, Hb 13 at 1000, prior 13.8, at 11.5 at 1300. His guardian, and is aware that he is at the emergency department. Last EGD in May 2022 with finding of grade 2 esophagitis in the lower esophagus. Review of Systems 2 General: Reports: ROS unobtainable due to medical condition Medications/Allergies Home Medications Medication Instructions Recorded Confirmed Last Taken Type bisacodyl 10 mg rectal suppository 10 mg ND DAILY PRN Constipation 05/12/22 07/18/23 05/18/22 History acetaminophen 325 mg tablet 325 mg PO Q6H PRN Pain 07/18/23 07/18/23 Unknown History (Tylenol) famotidine 40 mg tablet 40 mg PO BID@08,17 07/18/23 07/18/23 Unknown History magnesium hydroxide 400 mg/5 mL 30 ml PO DAILY PRN Constipation 07/18/23 07/18/23 Unknown History oral suspension (Milk of Magnesia) melatonin 1 mg tablet 1 mg PO BEDTIME@20 07/18/23 07/18/23 Unknown History pantoprazole 40 mg tablet,delayed 40 mg PO DAILY@06 07/18/23 07/18/23 Unknown History release (Protonix) polyethylene glycol 3350 17 gram 17 g PO DAILY@08 07/18/23 07/18/23 Unknown History oral powder packet (Miralax) sodium phosphates 19 gram-7 118 ml ND DAILY PRN Constipation 07/18/23 07/18/23 Unknown History gram/118 mL enema (Mikfu-Vv-Vsw Enema) Allergies Allergy/AdvReac Type Severity Reaction Status Date / Time metoclopramide [From Reglan] Allergy seizure Verified 07/18/23 11:15 PFSH Acute 2 PFSH: Medical History (Updated 07/18/23 @ 15:09 by Bernardino Bowens MD) Cerebral palsy Gastritis Surgical History (Updated 07/18/23 @ 15:09 by Bernardino Bowens MD) Hx of brain surgery Surgical history unknown Social History Smoking and tobacco/nicotine status: never used tobacco/nicotine Housing: Group Home Vitals/I&O/Wt Last Vital Signs Temp 98.3 F 07/18/23 11:04 Pulse 101 H 07/18/23 12:30 BP 113/73 07/18/23 12:30 Pulse Ox 99 07/18/23 12:30 O2 Del Method Room Air 07/18/23 12:30 07/17/23 07/18/23 07/18/23 22:59 06:59 14:59 Intake Total 1000 / 1000 Balance 1000 / 1000 Physical Exam 2 Narrative: Nonverbal. Noncommunicative. Does not understand or follow directions. Const: COMMON NORMALS: alert ORIENTATION/CONSCIOUSNESS: Yes awake HENMT: COMMON NORMALS: oropharynx normal Neck/C-Spine: COMMON NORMALS: no JVD Resp: COMMON NORMALS: normal respiratory effort and clear to auscultation bilaterally AUSCULTATION: clear to auscultation bilaterally Cardio: COMMON NORMALS: no JVD, regular rhythm, S1 normal heart sound present, S2 normal heart sound present and No murmurs present (Cardio) RHYTHM: regular rhythm HEART SOUNDS: S1 normal heart sound present and S2 normal heart sound present GI: COMMON NORMALS: Normal to inspection, nondistended, normoactive bowel sounds present, Soft to palpation and non-tender PALPATION: Yes Soft to palpation Extremity: COMMON NORMALS: no joint enlargement and no pedal edema Neuro: COMMON NORMALS: moves all extremities SENSORIUM/ORIENTATION: Yes alert Skin: COMMON NORMALS: no rashes or lesions noted GENERAL SKIN EXAM: no rashes or lesions noted Data 07/18/23 13:15 07/18/23 10:15 Micro: Microbiology 07/18/23 10:15 Blood Culture - Preliminary Blood SPECIMEN COLLECTED 07/18/23 10:20 Blood Culture - Preliminary Blood SPECIMEN COLLECTED A&P Assessment and plan (1) Upper GI bleed: No episodes of coffee-ground emesis, acute anemia with hemoglobin down to 11.5. Concern for impending hypovolemic/hemorrhagic shock, tachycardic, initial admission to intensive care unit. Received IV fluid bolus. Reviewed vitals, CBC, CMP, discussed with ER physician, ER documentation reviewed. Type and screen is requested. 2 units RBC requested on hold. Surgical consultation is requested. Discussed with his guardian. Continue twice daily IV PPI. Recheck hemoglobin at intervals. Recheck CBC in the morning. He is not taking NSAIDs, aspirin, anticoagulants. History of erosive esophagitis grade 2, EGD about 14 months ago. (2) Acute anemia: As above. Plan Small mount of air in the umbilicus appearing contiguous with stomach antrum, previously seen as well. No sign of perforation. This appears likely from prior gastrostomy. Small hiatal hernia. Attestations 2 Medical Necessity Statement*: Admission of over 2 midnights anticipated for assessment management of upper GI bleeding, acute anemia. Coding Level of Care Code Critical Care >/= 30 minutes Diagnoses Upper GI bleed K92.2 Acute anemia D64.9
--- NOTE | 2023-07-18 17:18 | P.CONIM_ITS ---
Providers/Reason For Consult 2 Consulting Physician/Specialty*: Dr. Chuckie Nunes, DO/General surgery Reason for Consult*: Coffee-ground emesis Attending Physician: Bernardino Bowens Primary Care Provider: José Carlson Jr, MD History of Present Illness History of Present Illness Mikal Hernández is a 22 year old male with profound cerebral palsy who presented to the hospital from a intermediate due to coffee-ground emesis. Caretakers were not present in the room when I examined the patient in the emergency room and the patient is nonverbal. HPI and review of systems are limited secondary to this. Review of Systems 2 General: Reports: ROS unobtainable due to medical condition Medications/Allergies Home Medications Medication Instructions Recorded Confirmed Last Taken Type bisacodyl 10 mg rectal suppository 10 mg MO DAILY PRN Constipation 05/12/22 07/18/23 05/18/22 History acetaminophen 325 mg tablet 325 mg PO Q6H PRN Pain 07/18/23 07/18/23 Unknown History (Tylenol) famotidine 40 mg tablet 40 mg PO BID@08,07/18/23 07/18/23 Unknown History magnesium hydroxide 400 mg/5 mL 30 ml PO DAILY PRN Constipation 07/18/23 07/18/23 Unknown History oral suspension (Milk of Magnesia) melatonin 1 mg tablet 1 mg PO BEDTIME@20 07/18/23 07/18/23 Unknown History pantoprazole 40 mg tablet,delayed 40 mg PO DAILY@06 07/18/23 07/18/23 Unknown History release (Protonix) polyethylene glycol 3350 17 gram 17 g PO DAILY@08 07/18/23 07/18/23 Unknown History oral powder packet (Miralax) sodium phosphates 19 gram-7 118 ml MO DAILY PRN Constipation 07/18/23 07/18/23 Unknown History gram/118 mL enema (Gsqum-Ov-Frz Enema) Allergies Allergy/AdvReac Type Severity Reaction Status Date / Time metoclopramide [From Reglan] Allergy seizure Verified 07/18/23 11:15 Current Medications Generic Name Dose Route Start Last Admin Trade Name Freq PRN Reason Stop Dose Admin Sodium Chloride 1,000 mls @ 100 mls/hr 07/18/23 17:11 07/19/23 05:07 Sodium Chloride 0.9% IV 100 mls/hr .Q10H NORBERTO Administration Sodium Chloride 1,000 mls @ 30 mls/hr 07/19/23 10:45 07/19/23 10:47 Sodium Chloride 0.9% IV 07/20/23 10:44 30 mls/hr .Q24H NORBERTO Administration Pantoprazole Sodium 40 mg 07/18/23 22:00 07/19/23 00:03 Pantoprazole 40 Mg Sdv IVP 40 mg Q12H NORBERTO Administration PFSH Acute 2 PFSH: Medical History Cerebral palsy Gastritis Surgical History Hx of brain surgery Surgical history unknown Social History Smoking and tobacco/nicotine status: never used tobacco/nicotine Housing: [facility] Vitals/I&O/Wt Last Vital Signs Temp 98.6 F 07/19/23 10:41 Pulse 87 07/19/23 10:41 Resp 18 07/19/23 10:41 BP 141/78 07/19/23 10:41 Pulse Ox 96 07/19/23 10:41 O2 Del Method Room Air 07/19/23 10:41 07/18/23 07/19/23 07/19/23 22:59 06:59 14:59 Intake Total 1400 / 2400 1000 / 3400 Balance 1400 / 2400 1000 / 3400 Weight last 48 hrs Weight 146 lb 3 oz Weight 145 lb 8.081 oz Physical Exam 2 Narrative: General : Patient is well developed , no acute distress, patient is nonverbal Head : Normal cephalic, a-traumatic. Ears : Pinnae and external canal are normal. Hearing appears normal Eyes : PERRLA, Sclera and injection are normal. No conjunctival discharge. Nose : Mucous membranes are without erythema. Throat : buccal mucosa is normal, gums are without significant recession or hypertrophy. Lungs : Equal chest rise bilaterally, no use of accessory muscles, trachea is midline. Cor : Rate and rhythm are normal. Abdomen : Soft, ND, NT, no g/r/m Extremities : No edema, no cyanosis or clubbing, dorsalis pedis pulses are present bilaterally, non-tender to palpation of calves. Upper extremities are normal bilaterally. Back : non-tender to palpation, no CVA tenderness. Data 07/19/23 09:40 07/19/23 06:26 Micro: Microbiology 07/18/23 10:15 Blood Culture - Preliminary Blood NEGATIVE TO DATE 07/18/23 10:20 Blood Culture - Preliminary Blood NEGATIVE TO DATE A&P Assessment and plan (1) Upper GI bleed: Plan EGD tomorrow The risks and benefits of the procedure, including bleeding, infection, intestinal perforation requiring surgery, missed lesion were explained to the patient. The patient is understanding of the risks and wishes to proceed. Coding Level of Care Code 14093 Diagnoses Upper GI bleed K92.2
[2023-07-18] MEDS: sodium chloride 0.9% 1,000 ML 100 ML IV (19:05)
[2023-07-19] VITALS (11 sets, daily range): BP systolic 95–141; BP diastolic 54–83; PULSE 71–90; RESP 15–22; TEMP 36.1–37.2; O2SAT 93–98; BMI 23.6
[2023-07-19] MEDS: pantoprazole 40 mg SDV IVP (00:03)
[2023-07-19] MEDS: sodium chloride 0.9% 1,000 ML 100 ML IV (05:07)
[2023-07-19 07:06] LABS: Anion Gap 13.5 (5-19); Blood Urea Nitrogen 11 mg/dL (6-20); Calcium 8.3 mg/dL (8.5-10.5); Carbon Dioxide 23 mmol/L (22-29); Chloride 116 mmol/L (98-107); Glucose 85 mg/dL (65-115); Osmolality Calculated 307 mOsm/kg (285-295); Potassium 3.5 mmol/L (3.5-5.1); Sodium 149 mmol/L (136-145)
[2023-07-19 09:57] LABS: Basophils % 0.5 %; Eosinophils # 0.3 10^3/uL (0.0-0.8); Eosinophils % 3.5 %; Hematocrit 37.5 % (37-53); Lymphocytes # 2.9 10^3/uL (1.5-6.5); Lymphocytes % 36.5 %; Mean Corpuscular HGB Conc 29.6 g/dL (30-55); Mean Corpuscular Hemoglobin 22.8 pg (27-33); Mean Platelet Volume 10.4 fL (7.4-10.4); Monocytes # 0.9 10^3/uL (0.2-0.9); Monocytes % 11.1 %; Neutrophils # 3.85 10^3/uL (1.8-8.0); Neutrophils % 48.1 %; Nucleated Red Blood Cells % 0 %; Platelet Count 270 10^3/cmm (157-399); Red Blood Count 4.87 10^6/uL (3.85-5.65); Red Cell Distribution Width 19.4 % (12.1-15.1)
--- NOTE | 2023-07-19 10:32 | PC.CHAP ---
Pastoral Care Encounter/Spiritual Assessment Type of Contact [] Declined boat loader visit [] Patient/Family/Request visit [] Outpatient visit [] Follow-up visit [] Physician referral [] Code/Alert [x] Routine visit [] Staff referral [] Actively dying [] Patient sleeping [] Family support [] [] Out of room [] Palliative care [] [] Receiving care in room [] Pre-surgical visit [] Trauma [] Long length of stay [] ICU visit [] Other: Relational/Emotional Strength [] Patient feels connected with others/family/visitors/staff [] Distress [] Loneliness/isolation [] Abandonment Spirituality of Patient [] Person of [place] [] Attends Sikh of their [place] [] Believes in Prayer [] Reads Bible or Presybeterian materials [] There are Spiritual issues to be addressed Api Product Manager Interventions [x] Prayer [] Active listening [] Non-anxious presence [] Spiritual/emotional support [] Crisis/trauma care [] Spiritual counseling [] Bereavement support [] Provided bereavement packet [] Provided Bible/devotional materials [] Provided toy/stuffed animal, coloring book to patient or family member [] Provided Communion [] Anointing/[place] [] Salvation [] Completed spiritual assessment [] Other: Impact on Illness or Injury [] Angry [] Fearful [] Anxious [] Often cries [] Exhaustion [x] Unable to work [x] Unable to attend anabaptism [] Unable to walk/stand [] Unable to read [x] Unable to drive [] Unable to eat/drink [] Unable to sleep [] Unable to be with family [] Patient intubated [] Other: Summary prayer with young man Time spent with patient 10 min
--- NOTE | 2023-07-19 10:43 | P.ANESASSM_ITS ---
Pre-Anesthetic Assessment Height/Weight: Height 1.68 m Weight 66.31 kg Temp Pulse Resp BP Pulse Ox O2 Del Method 98.6 F 87 18 141/78 96 Room Air 07/19/23 10:41 07/19/23 10:41 07/19/23 10:41 07/19/23 10:41 07/19/23 10:41 07/19/23 10:41 Preop Diagnosis: Acute GI bleed Operation Date: 07/19/23 11:15 Proposed Procedures p EGD(Not Applicable) - Chuckie Nunes DO Familial anesthetic complications: None Was Beta Anatoly taken within 24 hours: N/A Was Clonidine taken within 24 hours: N/A Social No alcohol and No tobacco Exam alert, clear to auscultation bilaterally (Unable to fully assess as patient is unable to follow commands) and regular rate & rhythm Nonverbal Airway Submandibular: Other (Unable to assess) Cervical ROM: Other (Unable to assess) Dentition: full (No dental issues per mother) History/ROS No significant history except as noted and No significant complaints Pulmonary None reported CV/HEM Anemia (Acute) None reported Hepatic None reported GI Peptic Ulcer Disease Acute GI bleed Metabolic None reported Musc/skel None reported Neuropsych Seizure Cerebral Palsy TBI Anesthetic Plan ASA status: 3E Anesthesia: Anesthesia Evaluation, General and MAC Risk of > 500 ml blood loss (7ml/kg in children): No Medications/Allergies Home Medications Medication Instructions Recorded Confirmed Last Taken Type bisacodyl 10 mg rectal suppository 10 mg PA DAILY PRN Constipation 05/12/22 07/18/23 05/18/22 History acetaminophen 325 mg tablet 325 mg PO Q6H PRN Pain 07/18/23 07/18/23 Unknown History (Tylenol) famotidine 40 mg tablet 40 mg PO BID@08,17 07/18/23 07/18/23 Unknown History magnesium hydroxide 400 mg/5 mL 30 ml PO DAILY PRN Constipation 07/18/23 07/18/23 Unknown History oral suspension (Milk of Magnesia) melatonin 1 mg tablet 1 mg PO BEDTIME@20 07/18/23 07/18/23 Unknown History pantoprazole 40 mg tablet,delayed 40 mg PO DAILY@06 07/18/23 07/18/23 Unknown History release (Protonix) polyethylene glycol 3350 17 gram 17 g PO DAILY@08 07/18/23 07/18/23 Unknown History oral powder packet (Miralax) sodium phosphates 19 gram-7 118 ml PA DAILY PRN Constipation 07/18/23 07/18/23 Unknown History gram/118 mL enema (Idsus-Wx-Qwo Enema) Allergies Allergy/AdvReac Type Severity Reaction Status Date / Time metoclopramide [From Reglan] Allergy seizure Verified 07/18/23 11:15 Current Medications Generic Name Dose Route Start Last Admin Trade Name Freq PRN Reason Stop Dose Admin Sodium Chloride 1,000 mls @ 100 mls/hr 07/18/23 17:11 07/19/23 05:07 Sodium Chloride 0.9% IV 100 mls/hr .Q10H NORBERTO Administration Pantoprazole Sodium 40 mg 07/18/23 22:00 07/19/23 00:03 Pantoprazole 40 Mg Sdv IVP 40 mg Q12H NORBERTO Administration PFSH Anesthesia Medical History (Updated 07/18/23 @ 15:09 by Bernardino Bowens MD) Cerebral palsy Gastritis Surgical History (Updated 07/18/23 @ 15:09 by Bernardino Bowens MD) Hx of brain surgery Surgical history unknown Social History Smoking and tobacco/nicotine status: never used tobacco/nicotine Housing: Half-Way Data Anesthesia 07/19/23 09:40 07/19/23 06:26 Short CBC 07/18/23 07/18/23 07/18/23 Range/Units 10:15 13:15 20:33 WBC 11.25 (4.5-13.0) 10^3/uL Hgb 13.00 L 11.50 L 11.50 L (13.2-15.6) g/dL Hct 44.6 (37-53) % MCV 76.2 L (82-101) fl Plt Count 354 (157-399) 10^3/cmm Neut % (Auto) 82.7 % Neut # (Auto) 9.31 H (1.8-8.0) 10^3/uL 07/19/23 07/19/23 07/19/23 Range/Units 01:20 06:26 09:40 WBC Cancelled 8.00 (4.5-13.0) 10^3/uL Hgb 10.60 L Cancelled 11.10 L (13.2-15.6) g/dL Hct Cancelled 37.5 (37-53) % MCV Cancelled 77.0 L (82-101) fl Plt Count Cancelled 270 (157-399) 10^3/cmm Neut % (Auto) Cancelled 48.1 % Neut # (Auto) Cancelled 3.85 (1.8-8.0) 10^3/uL BMP 07/18/23 07/19/23 10:15 06:26 Sodium 149 H 149 H Potassium 3.8 3.5 Chloride 108 H 116 H Carbon Dioxide 28 23 BUN 17 11 Creatinine 0.4 L 0.5 L Glucose 112 85 Calcium 9.5 8.3 L Liver Function 07/18/23 Range/Units 10:15 Total Bilirubin 0.4 (0.15-1.2) mg/dL AST 15 (0-40) U/L ALT 25 (0-41) U/L Alkaline Phosphatase 124 (40-130) U/L Albumin 4.5 (3.5-5.2) g/dL Blood Bank 07/18/23 13:44 Blood Type O Positive Rho(D) Type Rh positive Antibody Screen Negative Microbiology 07/18/23 10:15 Blood Culture - Preliminary Blood NEGATIVE TO DATE 07/18/23 10:20 Blood Culture - Preliminary Blood NEGATIVE TO DATE Cardiac Studies: 2 No Data to Display
[2023-07-19] MEDS: sodium chloride 0.9% 1,000 ML 30 ML IV (10:47)
--- NOTE | 2023-07-19 12:21 | P.PN_ITS ---
Vitals/I&O/Wt Last Vital Signs Temp 98.6 F 07/19/23 10:41 Pulse 87 07/19/23 10:41 Resp 18 07/19/23 10:41 BP 141/78 07/19/23 10:41 Pulse Ox 96 07/19/23 10:41 O2 Del Method Room Air 07/19/23 10:41 07/18/23 07/19/23 07/19/23 22:59 06:59 14:59 Intake Total 1400 / 2400 1000 / 3400 Balance 1400 / 2400 1000 / 3400 Weight last 48 hrs Weight 146 lb 3 oz Weight 145 lb 8.081 oz Data 07/19/23 09:40 07/19/23 06:26 Micro: Microbiology 07/18/23 10:15 Blood Culture - Preliminary Blood NEGATIVE TO DATE 07/18/23 10:20 Blood Culture - Preliminary Blood NEGATIVE TO DATE A&P Assessment and plan (1) Upper GI bleed: Plan EGD The risks and benefits of the procedure, including bleeding, infection, intestinal perforation requiring surgery, missed lesion were explained to the patient. The patient is understanding of the risks and wishes to proceed. Attestations 2 Medical Necessity Statement*: Per primary Coding Level of Care Code Acute Code for Chg Fwd Diagnoses Upper GI bleed K92.2
--- NOTE | 2023-07-19 15:57 | ANE.PACU2 ---
Inpatient post-anesthesia follow up: Airway intact: Yes Vital signs: Temperature 97.0 F Pulse Rate 73 Respiratory Rate 18 Blood Pressure 118/77 Pulse Oximetry 98 Oxygen Delivery Me thod Room Air Oxygen Flow Rate Fraction of Inspir ed Oxygen Hydration adequate: Yes Nausea and vomiting: No Pain level: 2 Mental status: Baseline
--- NOTE | 2023-07-19 21:49 | P.PN_ITS ---
Subjective 2 Subjective: Noncommunicative. Vitals/I&O/Wt Last Vital Signs Temp 97.5 F L 07/19/23 15:15 Pulse 89 07/19/23 21:08 Resp 15 07/19/23 21:08 BP 125/77 07/19/23 21:08 Pulse Ox 93 07/19/23 21:08 O2 Del Method Room Air 07/19/23 21:08 07/19/23 07/19/23 07/19/23 06:59 14:59 22:59 Intake Total 1000 / 3400 100 / 100 Balance 1000 / 3400 100 / 100 Weight last 48 hrs Weight 66.31 kg Weight 66 kg Physical Exam 2 Narrative: Does not appear in distress. Const: COMMON NORMALS: alert ORIENTATION/CONSCIOUSNESS: Yes awake HENMT: COMMON NORMALS: oropharynx normal Neck/C-Spine: COMMON NORMALS: no JVD Resp: COMMON NORMALS: normal respiratory effort and clear to auscultation bilaterally AUSCULTATION: clear to auscultation bilaterally Cardio: COMMON NORMALS: no JVD, regular rhythm, S1 normal heart sound present, S2 normal heart sound present and No murmurs present (Cardio) RHYTHM: regular rhythm HEART SOUNDS: S1 normal heart sound present and S2 normal heart sound present GI: COMMON NORMALS: Normal to inspection, nondistended, normoactive bowel sounds present, Soft to palpation and non-tender PALPATION: Yes Soft to palpation Extremity: COMMON NORMALS: no joint enlargement and no pedal edema Neuro: COMMON NORMALS: moves all extremities SENSORIUM/ORIENTATION: Yes alert Skin: COMMON NORMALS: no rashes or lesions noted GENERAL SKIN EXAM: no rashes or lesions noted Data 07/19/23 09:40 07/19/23 06:26 Micro: Microbiology 07/18/23 10:15 Blood Culture - Preliminary Blood NEGATIVE TO DATE 07/18/23 10:20 Blood Culture - Preliminary Blood NEGATIVE TO DATE A&P Assessment and plan (1) Upper GI bleed: Status post EGD. Vitals, repeat CBC, BMP reviewed. Discussed with surgery. Reviewed surgery documentation. Area of inflammation around prior gastrostomy, biopsied. Small amount of inflammation in the distal esophagus. Trial of oral diet. Continue PPI. Stop IV fluid Recheck CBC in the morning. He is not taking NSAIDs, aspirin, anticoagulants. History of erosive esophagitis grade 2, EGD about 14 months ago. (2) Acute anemia: As above. Plan Small mount of air in the umbilicus appearing contiguous with stomach antrum, previously seen as well. No sign of perforation. This appears likely from prior gastrostomy. Small hiatal hernia. Attestations 2 Medical Necessity Statement*: Continue hospitalization for assessment following upper GI bleeding, acute anemia. Diagnoses Upper GI bleed K92.2 Acute anemia D64.9
[2023-07-20] VITALS (9 sets, daily range): BP systolic 109–161; BP diastolic 68–87; PULSE 72–89; RESP 15–18; TEMP 36.5–37.2; O2SAT 92–98; BMI 23.8
--- NOTE | 2023-07-20 02:51 | CTR_ITS ---
PROCEDURE INFORMATION: Exam: CT Abdomen And Pelvis With Contrast Exam date and time: 07/20/2023 3:22 AM Age: 22 years old Clinical indication: Vomiting; Prior surgery; Surgery date: 6+ months; Surgery type: Back; Patient HX: Patient projectile vomited before scan; Additional info: Coffee ground emesis TECHNIQUE: Imaging protocol: Computed tomography of the abdomen and pelvis with contrast. Radiation optimization: All CT scans at this facility use at least one of these dose optimization techniques: automated exposure control; mA and/or kV adjustment per patient size (includes targeted exams where dose is matched to clinical indication); or iterative reconstruction. Contrast material: OMNI 350; Contrast volume: 80 ml; Contrast route: INTRAVENOUS (IV); REPORTING DATA: Count of CT and Cardiac NM exams in prior 12 months: This patient has received [address] and 0 known cardiac nuclear medicine studies in the 12 months prior to the current study. COMPARISON: CT abdomen pelvis w con* [id number] 07/18/2023 11:37 AM RADIATION DOSE METRICS: Total DLP (mGy-cm): 801.73 FINDINGS: Tubes, catheters and devices: Catheter coiled in the pelvis, presumably a ventriculoperitoneal shunt catheter. Diaphragm: Small-moderate hiatal hernia. Liver: Unremarkable. Gallbladder and bile ducts: No calcified stones. No biliary ductal dilation. No pericholecystic fluid. Pancreas: Unremarkable. No duct dilation. Spleen: Unremarkable. Adrenal glands: Unremarkable. Kidneys and ureters: No hydronephrosis or hydroureter. No renal or ureteral calculi. Stomach and bowel: Scattered colonic diverticula without CT evidence of acute diverticulitis. No bowel obstruction. Indeterminate metallic foreign body within the rectum measuring approximately 2.0 cm, series 3, image 80, previously seen within the sigmoid colon on 07/18/2023 CT. Appendix: Appendix is normal. Intraperitoneal space: Unremarkable. No free air. No significant fluid collection. Vasculature: No abdominal aortic aneurysm. Lymph nodes: No enlarged lymph nodes. Urinary bladder: Unremarkable as visualized. Reproductive: Unremarkable as visualized. Bones/joints: Scoliosis hardware. No evidence of hardware fracture or loosening. Bilateral femur fixation hardware. Soft tissues: Redemonstrated small left ventral abdominal wall hernia with protrusion of small portion of nondilated stomach, similar dating back to 03/18/[address]/CT abdomen pelvis w con* [id number] IMPRESSION: 1. There is a metallic foreign body within the rectum measuring approximately 2.0 cm, previously seen within the sigmoid colon on 07/18/2023 CT. 2. No free air or free fluid to suggest bowel perforation. No other acute findings.
--- NOTE | 2023-07-20 02:53 | PC.NURSE ---
At 0230 this nurse and NT Lindsey went to give the patient a bed bath. Pt had vomited a large amount of coffee ground emesis, and there was some emesis on the wall next to the bed as well. This nurse and NT cleaned the patient; while bathing the patient he vomited a second time, again a large amount of coffee-ground emesis with a jelly-like texture. Patient's abdomen is more distended. Patient was again fully bathed. Called Dr Chen to make him aware of the patient's condition, Dr Chen ordered a stat CT of the abdomen with IV contrast. While changing the patient's linens, this nurse found an IV catheter underneath the patient. The IV was connected to a J-loop and venaguard, but the catheter tip was missing. This nurse notified Dr Chen of the missing catheter tip.
[2023-07-20] MEDS: dextrose 5%-ns 0.45% + KCl 10 1,000 ML 75 MEQ IV (06:04)
[2023-07-20 06:07] LABS: Basophils % 0.4 %; Eosinophils # 0.2 10^3/uL (0.0-0.8); Hematocrit 41.9 % (37-53); Lymphocytes # 1.6 10^3/uL (1.5-6.5); Lymphocytes % 16.9 %; Mean Corpuscular HGB Conc 30.1 g/dL (30-55); Mean Corpuscular Hemoglobin 22.5 pg (27-33); Mean Platelet Volume 10.1 fL (7.4-10.4); Monocytes # 0.9 10^3/uL (0.2-0.9); Monocytes % 9.3 %; Neutrophils # 6.62 10^3/uL (1.8-8.0); Neutrophils % 71.2 %; Nucleated Red Blood Cells % 0 %; Platelet Count 281 10^3/cmm (157-399); Red Blood Count 5.59 10^6/uL (3.85-5.65); Red Cell Distribution Width 18.7 % (12.1-15.1); White Blood Count 9.31 10^3/uL (4.5-13.0)
[2023-07-20] MEDS: ondansetron 2 mg/ML SDV 2 mL 4 MG IVP ×2 (07:38→18:34)
[2023-07-20] MEDS: morphine 4 mg/mL SDV 1 mL 2 MG IVP ×2 (07:41→18:33)
[2023-07-20] MEDS: pantoprazole 40 mg SDV IVP ×2 (11:12→22:03)
--- NOTE | 2023-07-20 14:18 | XR_ITS ---
WS: [id number] LEFT FOREARM 2 VIEWS HISTORY: possible catheter tip COMPARISON: None available. No fracture or dislocation. No foreign body is identified that would be associated with the fracture cannula tip. The existing IV is present within the existing cannula tip. IMPRESSION: No fractured cannula tip identified in the LEFT antecubital fossa.
--- NOTE | 2023-07-20 14:58 | US_ITS ---
WS: [id number] ULTRASOUND SOFT TISSUES LEFT antecubital fossa. HISTORY: L antecubital fossa COMPARISON: None available. TECHNIQUE: 2-D and color Doppler imaging is submitted. No foreign bodies noted within the LEFT antecubital fossa. No fluid collection IMPRESSION: No foreign body in the LEFT antecubital fossa.
--- NOTE | 2023-07-20 15:37 | XRR_ITS ---
PROCEDURE INFORMATION: Exam: XR Chest Exam date and time: 07/20/2023 6:20 PM Age: 22 years old Clinical indication: Screening exam; Other screening; Prior surgery; Surgery date: 6+ months; Surgery type: [place]on rods; Patient HX: Eval for foreign body; Nonverbal PT pulled out iv; Iv hub found attached to extension tubing; Plastic cath of iv not found TECHNIQUE: Imaging protocol: Radiologic exam of the chest. Views: 1 view. COMPARISON: CR XR chest 1V portable [id number] 07/18/2023 9:56 AM FINDINGS: Lungs: Unremarkable. No consolidation. Pleural spaces: Unremarkable. No pleural effusion. No pneumothorax. Heart/Mediastinum: Unremarkable. No cardiomegaly. Bones/joints: Unchanged extensive spinal instrumentation. XR/XR chest 1V portable [id number] IMPRESSION: No acute findings.
--- NOTE | 2023-07-20 18:56 | PC.NURSE ---
pt pulled out iv from left upper arm, was able to get new us guided iv near the same site.
[2023-07-20] MEDS: sucralfate 1 gm/10 mL Oral Liq UDC PO (20:49)
--- NOTE | 2023-07-20 21:33 | PM.TDS ---
Transfer Summary Providers Date of Admission: 07/18/23 16:30 Date of Discharge/Transfer: 07/20/23 Attending Provider at Admission: Bernardino Bowens Attending Provider at Transfer: Bernardino Bowens Primary Care Provider: José Carlson Jr, MD Transfer Plans: Anticipated date of transfer: 07/20/23. Diagnoses at Discharge Discharge Diagnosis (1) Upper GI bleed: Status: Acute (2) Acute anemia: Status: Acute Reason for Visit Reason for Visit N/V History of TBI Hospital Course Hospital Course 22-year-old gentleman with history of cerebral palsy, cognitive disability, noncommunicative at baseline, requiring total care assist, living in a facility, healthcare decisions made by adoptive parent/guardian. Was brought into the hospital after episodes of coffee-ground emesis. On presentation with anemia, previously hemoglobin 13.8, on presentation 13, later that afternoon down to 11.5. Lowest 10.6 with additional hematemesis on 05/19, received 1 unit RBC transfusion. This morning hemoglobin 12.6. Has history of coffee-ground emesis with EGD about 14 months ago with finding of grade 2 esophagitis in the lower esophagus, on CT abdomen pelvis with contrast on presentation as well as during prior EGD noted also tract/tunnel towards abdominal wall with air content, a remnant from prior gastrostomy no longer in place. Has been on PPI once daily. Underwent additional assessment by EGD yesterday with finding of mild distal gastritis, some mild inflammation reported around the prior gastrostomy tract which was biopsied, no obvious source of coffee-ground emesis at this time either. Incidentally noted cobblestoning of posterior pharynx, plans were to additionally refer to ENT after discharge. While here Treated with IV PPI twice daily, bowel rest, IV hydration,with additional coffee-ground emesis overnight, CT abdomen pelvis was repeated without perforation, to abdominal fluid or obvious source of bleeding. Additionally incidentally noted 2 cm round object now in the rectum, on initial CT identified present in sigmoid colon. Additionally overnight IV catheter hub was found under him missing the plastic catheter tip. Discussed all these findings with his guardian. With recurrent coffee-ground emesis, without source of bleeding noted on current and prior EGD, per discussion with surgery recommendation for transfer for additional assessment by GI, consideration of deep enteroscopy. His bed And room were also looked through and swept but the catheter tip has not been found. Discussed with radiology, vascular surgery, arm imaged with x-ray as well as ultrasound, only current IV in place, no loose catheter tip identified. Imaged additionally per discussion with radiology with plain chest x-ray, no catheter tip identified higher up in the arm or chest cavity. Discussed with his guardian, location is unclear, likely it may have been lost in bed, however, cannot exclude 100% still presence with a catheter tip in him, including possibly through ingestion as he He is noted biting on blankets, objects around him, and with finding of a differentforeign object in his colon on CT. Discussed his condition, surgery recommendations with team at [facility] in [place] where he had also previously gotten other care, hospital transfer transfer by the guardian, and he is currently accepted for further assessment and management there. Physical Exam Narrative: Does not appear in distress. Const: COMMON NORMALS: alert ORIENTATION/CONSCIOUSNESS: Yes awake HENMT: COMMON NORMALS: oropharynx normal Neck/C-Spine: COMMON NORMALS: no JVD Resp: COMMON NORMALS: normal respiratory effort and clear to auscultation bilaterally AUSCULTATION: clear to auscultation bilaterally Cardio: COMMON NORMALS: no JVD, regular rhythm, S1 normal heart sound present, S2 normal heart sound present and No murmurs present (Cardio) RHYTHM: regular rhythm HEART SOUNDS: S1 normal heart sound present and S2 normal heart sound present GI: COMMON NORMALS: Normal to inspection, nondistended, normoactive bowel sounds present, Soft to palpation and non-tender PALPATION: Yes Soft to palpation Extremity: COMMON NORMALS: no joint enlargement and no pedal edema Neuro: COMMON NORMALS: moves all extremities SENSORIUM/ORIENTATION: Yes alert Skin: COMMON NORMALS: no rashes or lesions noted GENERAL SKIN EXAM: no rashes or lesions noted OTHER: Mild induration, blistering of antecubital fossa from prior dressing, appears contact dermatitis to adhesive. Added to allergens. TS Data Studies Completed and Pending Pending at discharge Category Date Time Status Blood Culture Stat Lab 07/18/23 10:15 Results Complete Blood Count w/Auto AM LABS Lab 07/21/23 04:00 Ordered Leukocyte Reduced RBC Routine Lab 07/18/23 13:44 Results Type and Screen Routine Lab 07/18/23 13:44 Results Pathology: Surgical [PTH] Routine Pth 07/19/23 12:34 Received Completed Studies During Hospitalization Category Date Time Status CT abdomen pelvis w con* [id number] Stat Cat Scan 07/18/23 10:[address] abdomen pelvis w con* [id number] Stat Cat Scan 07/20/23 02:51 Completed CXRP [XR chest 1V portable [id number]] Routine Exams 07/20/23 15:37 Completed XR chest 1V portable [id number] Stat Exams 07/18/23 09:44 Completed XR forearm LT 2V [id number] Stat Exams 07/20/23 14:18 Completed US soft tissue and or extremity [US soft tissue/ Ultrasound 07/20/23 14:58 Completed extremity [id number]] Routine Laboratory Last Values WBC 9.31 10^3/uL (4.5-13.0) 07/20/23 05:56 Corrected WBC Cancelled 07/19/23 06:26 RBC 5.59 10^6/uL (3.85-5.65) 07/20/23 05:56 Hgb 12.50 g/dL (13.2-15.6) L 07/20/23 13:00 Hct 41.9 % (37-53) 07/20/23 05:56 MCV 75.0 fl (82-101) L 07/20/23 05:56 MCH 22.5 pg (27-33) L 07/20/23 05:56 MCHC 30.1 g/dL (30-55) 07/20/23 05:56 RDW 18.7 % (12.1-15.1) H 07/20/23 05:56 Plt Count 281 10^3/cmm (157-399) 07/20/23 05:56 MPV 10.1 fL (7.4-10.4) 07/20/23 05:56 Gran % Cancelled 07/19/23 06:26 Neut % (Auto) 71.2 % 07/20/23 05:56 Lymph % (Auto) 16.9 % 07/20/23 05:56 Glascock % (Auto) 9.3 % 07/20/23 05:56 Eos % (Auto) 2.0 % 07/20/23 05:56 Baso % (Auto) 0.4 % 07/20/23 05:56 Neut # (Auto) 6.62 10^3/uL (1.8-8.0) 07/20/23 05:56 Lymph # (Auto) 1.6 10^3/uL (1.5-6.5) 07/20/23 05:56 Glascock # (Auto) 0.9 10^3/uL (0.2-0.9) 07/20/23 05:56 Eos # (Auto) 0.2 10^3/uL (0.0-0.8) 07/20/23 05:56 Baso # (Auto) 0.0 10^3/uL (0.0-0.1) 07/20/23 05:56 Absolute Gran (auto) Cancelled 07/19/23 06:26 Nucleated RBC % (auto) 0 % 07/20/23 05:56 Nucleated RBCs # 0.0 /100WBC 07/20/23 05:56 Sodium 149 mmol/L (136-145) H 07/19/23 06:26 Potassium 3.5 mmol/L (3.5-5.1) 07/19/23 06:26 Chloride 116 mmol/L (98-107) H 07/19/23 06:26 Carbon Dioxide 23 mmol/L (22-29) 07/19/23 06:26 Anion Gap 13.5 (5-19) 07/19/23 06:26 BUN 11 mg/dL (6-20) 07/19/23 06:26 Creatinine 0.5 mg/dL (0.7-1.2) L 07/19/23 06:26 GFR Calculation 212.0 mL/min (90-130) H 07/19/23 06:26 Glucose 85 mg/dL (65-115) 07/19/23 06:26 Calculated Osmolality 307 mOsm/kg (285-295) H 07/19/23 06:26 Lactic Acid 1.7 mmol/L (0.5-2.2) 07/18/23 10:15 Calcium 8.3 mg/dL (8.5-10.5) L 07/19/23 06:26 Total Bilirubin 0.4 mg/dL (0.15-1.2) 07/18/23 10:15 AST 15 U/L (0-40) 07/18/23 10:15 ALT 25 U/L (0-41) 07/18/23 10:15 Alkaline Phosphatase 124 U/L (40-130) 07/18/23 10:15 Total Protein 8.2 g/dL (6.6-8.7) 07/18/23 10:15 Albumin 4.5 g/dL (3.5-5.2) 07/18/23 10:15 Globulin 3.7 g/dL (1.3-4.6) 07/18/23 10:15 Lipase 140 U/L (13-60) H 07/18/23 10:15 Gastric Occult Blood Positive (Negative) H 07/18/23 11:00 Blood Type O Positive 07/18/23 13:44 Rho(D) Type Rh positive 07/18/23 13:44 Antibody Screen Negative 07/18/23 13:44 Crossmatch See Detail 07/18/23 13:44 Radiology Impressions Abdomen/Pelvis CT 07/20/23 02:51 IMPRESSION: 1. There is a metallic foreign body within the rectum measuring approximately 2.0 cm, previously seen within the sigmoid colon on 07/18/2023 CT. 2. No free air or free fluid to suggest bowel perforation. No other acute findings. Chest X-Ray 07/20/23 15:37 IMPRESSION: No acute findings. Recent Clincial Data Last Vital Signs Temp 98.3 F 07/20/23 18:57 Pulse 88 07/20/23 18:57 Resp 18 07/20/23 18:57 BP 120/70 07/20/23 18:57 Pulse Ox 93 07/20/23 18:57 O2 Del Method Room Air 07/20/23 18:57 Vital Signs Temp Pulse Resp BP Pulse Ox O2 Del Method 07/20/23 18:57 98.3 F 88 18 120/70 93 Room Air 07/20/23 18:33 18 07/20/23 16:00 98.3 F 87 18 124/72 98 Room Air 07/20/23 11:38 98.3 F 79 16 161/87 96 Room Air Intake & Output/Weight 07/18/23 07/19/23 07/20/23 07/21/23 06:59 06:59 06:59 06:59 Intake Total 3400 / 3400 1100 / 1100 988.75 / 988.75 Balance 3400 / 3400 1100 / 1100 988.75 / 988.75 Weight 66.31 kg 67.086 kg Vitals Last Vital Signs Temp 98.3 F 07/20/23 18:57 Pulse 88 07/20/23 18:57 Resp 18 07/20/23 18:57 BP 120/70 07/20/23 18:57 Pulse Ox 93 07/20/23 18:57 O2 Del Method Room Air 07/20/23 18:57 TS Medications Medications Benzocaine (Cetylpyridinium Lozenge) 1 each MUCOUS MEM ONCE PRN PRN Reason: SORE THROAT Fentanyl (Fentanyl 50 Mcg/Ml Inj 2ml) 50 mcg IVP ONCE PRN PRN Reason: Preop or postop pain Hydromorphone HCl (Hydromorphone 1 Mg/Ml Inj 1 Ml) 0.5 mg IVP ONCE PRN PRN Reason: PAIN Morphine Sulfate (Morphine 4 Mg/Ml Sdv 1 Ml) 2 mg IVP Q6H PRN PRN Reason: PAIN Last Admin: 07/20/23 18:33 Dose: 2 mg Ondansetron HCl (Ondansetron 2 Mg/Ml Sdv 2 Ml) 4 mg IVP Q6H PRN PRN Reason: NAUSEA AND VOMITING Ondansetron HCl (Ondansetron 2 Mg/Ml Sdv 2 Ml) 4 mg IVP ONCE PRN PRN Reason: NAUSEA AND VOMITING Ondansetron HCl (Ondansetron 2 Mg/Ml Sdv 2 Ml) 4 mg IVP Q15M PRN PRN Reason: Nausea/Vomiting PACU PHASE II Ondansetron HCl (Ondansetron 2 Mg/Ml Sdv 2 Ml) 4 mg IVP Q6H PRN PRN Reason: NAUSEA AND VOMITING Last Admin: 07/20/23 18:34 Dose: 4 mg Pantoprazole Sodium (Pantoprazole 40 Mg Sdv) 40 mg IVP Q12H [facility] Last Admin: 07/20/23 11:45 Dose: Not Given Pantoprazole Sodium (Pantoprazole 40 Mg Sdv) 40 mg IVP Q12H [facility] Last Admin: 07/20/23 11:12 Dose: 40 mg Sodium Chloride (Sodium Chloride 0.9% 100 Ml Bag) 50 ml IV PRN PRN PRN Reason: Blood transfusion prime and flush Sucralfate (Sucralfate 1 Gm/10 Ml Oral Liq Udc) 1 gm PO AC&BEDTIME [facility] Last Admin: 07/20/23 20:49 Dose: 1 gm Discontinued Medications Sodium Chloride (Sodium Chloride 0.9%) 1,000 mls @ 999 mls/hr IV .Q1H1M ONE Stop: 07/18/23 10:44 Last Infusion: 07/18/23 13:13 Dose: Infused Piperacillin Sod/Tazobactam (Sod 3.375 gm/ Sodium Chloride) 50 mls @ 100 mls/hr IV ONCE ONE; Protocol Stop: 07/18/23 13:10 Last Infusion: 07/18/23 16:36 Dose: Infused Sodium Chloride (Sodium Chloride 0.9%) 1,000 mls @ 999 mls/hr IV .Q1H1M ONE Stop: 07/18/23 13:41 Last Infusion: 07/18/23 16:36 Dose: Infused Sodium Chloride (Sodium Chloride 0.9%) 1,000 mls @ 100 mls/hr IV .Q10H [facility] Last Infusion: 07/19/23 22:34 Dose: Infused Sodium Chloride (Sodium Chloride 0.9%) 1,000 mls @ 30 mls/hr IV .Q24H [facility] Stop: 07/20/23 10:44 Last Infusion: 07/19/23 12:46 Dose: Infused Lidocaine HCl (Xylocaine) Confirm Administered Dose 5 mls @ as directed .ROUTE .STK-MED ONE Stop: 07/19/23 12:15 Potassium Chloride/Dextrose/Sod Cl (Dextrose 5%-Ns 0.45% + Kcl 10) 1,000 mls @ 75 mls/hr IV .[id number] [facility] Last Infusion: 07/20/23 19:15 Dose: Infused Iohexol (Iohexol 350 Mg/Ml 500 Ml Btl (Per Ml)) 0 ml IV ONCE ONE Stop: 07/18/23 11:43 Last Admin: 07/18/23 11:43 Dose: 100 ml Ondansetron HCl (Ondansetron 2 Mg/Ml Sdv 2 Ml) 4 mg IVP ONCE ONE Stop: 07/18/23 09:45 Last Admin: 07/18/23 10:37 Dose: 4 mg Pantoprazole Sodium (Pantoprazole 40 Mg Sdv) 80 mg IVP ONCE ONE Stop: 07/18/23 09:59 Last Admin: 07/18/23 10:27 Dose: Not Given Pantoprazole Sodium (Pantoprazole 40 Mg Sdv) 80 mg IVP ONCE ONE Stop: 07/18/23 10:28 Last Admin: 07/18/23 10:37 Dose: 80 mg Propofol (Propofol 10 Mg/Ml Sdv 20 Ml) Confirm Administered Dose 200 mg .ROUTE .STK-MED ONE Stop: 07/19/23 12:15 Propofol (Propofol 10 Mg/Ml Sdv 20 Ml) Confirm Administered Dose 200 mg .ROUTE .STK-MED ONE Stop: 07/19/23 12:19 Allergies adhesive Allergy (Verified 07/19/23 18:02) ALGY-Blister adhesive tape Allergy (Verified 07/19/23 18:02) ALGY-Blister metoclopramide [From Reglan] Allergy (Verified 07/18/23 11:15) seizure Home Medications bisacodyl 10 mg rectal suppository 10 mg [place] DAILY PRN Constipation 05/12/22 [History Confirmed 07/18/23] acetaminophen 325 mg tablet (Tylenol) 325 mg PO Q6H PRN Pain 07/18/23 [History Confirmed 07/18/23] famotidine 40 mg tablet 40 mg PO BID@08,17 07/18/23 [History Confirmed 07/18/23] magnesium hydroxide 400 mg/5 mL oral suspension (Milk of Magnesia) 30 ml PO DAILY PRN Constipation 07/18/23 [History Confirmed 07/18/23] melatonin 1 mg tablet 1 mg PO BEDTIME@20 07/18/23 [History Confirmed 07/18/23] pantoprazole 40 mg tablet,delayed release (Protonix) 40 mg PO DAILY@06 07/18/23 [History Confirmed 07/18/23] polyethylene glycol 3350 17 gram oral powder packet (Miralax) 17 g PO DAILY@08 07/18/23 [History Confirmed 07/18/23] sodium phosphates 19 gram-7 gram/118 mL enema (Pkwoz-Sc-Exe Enema) 118 ml [place] DAILY PRN Constipation 07/18/23 [History Confirmed 07/18/23] Discharge Plan Discharge Patient Disposition: Xfer SNF Condition: Stable Prescriptions: No Action bisacodyl 10 mg suppository 10 mg [place] DAILY PRN (Reason: Constipation) Tylenol 325 mg Tablet 325 mg PO Q6H PRN (Reason: Pain) Miralax 17 gram Powder In Packet 17 g PO DAILY@08 famotidine 40 mg Tablet 40 mg PO BID@08,17 Milk of Magnesia 400 mg/5 mL Suspension 30 ml PO DAILY PRN (Reason: Constipation) Protonix 40 mg Tablet,Delayed Release (Dr/Ec) 40 mg PO DAILY@06 Xposg-Bk-Cue Enema 19-7 gram/118 mL Enema 118 ml [place] DAILY PRN (Reason: Constipation) melatonin 1 mg Tablet 1 mg PO BEDTIME@20 Referrals: [facility] [Outside] José Carlson Jr, MD [Primary Care Provider] - Patient Instructions: GI Discharge Instructions, Opioid Safety Transfer Attestations Time Spent in Transfer Care: greater than 30 min Quality Metrics Clinical Quality Measures [ No reported AMI, CVA or VTE this stay] Coding Level of Care Code 71250 Total time (in minutes) for Discharge: 75 Diagnoses Upper GI bleed K92.2 Acute anemia D64.9
--- NOTE | 2023-07-20 23:21 | PC.NURSE ---
This nurse called Sajan Sandoval RN at [facility] to give handoff report at 2300.
[2023-07-21 00:34] VITALS: RESP 16
[2023-07-21] MEDS: morphine 4 mg/mL SDV 1 mL 2 MG IVP (00:34)
[2023-07-21] MEDS: ondansetron 2 mg/ML SDV 2 mL 4 MG IVP (00:34)
[2023-07-21 00:45] VITALS: BP 107/68; PULSE 68; RESP 18; O2SAT 95
--- NOTE | 2023-07-21 00:56 | PC.NURSE ---
EMS arrived to transfer pt to [facility]. Report given to EMS crew, pt given 2mg morphine IVP and 4mg zofran IVP prior to transfer. EMS and patient left at 0057. Called [facility] at [phone] to let them know patient is on the way.
== END 2023-07-21 00:55 | disposition skilled nursing facility (03) | DRG 379 ==
LOC: ER 11:24 → ICU 16:30 → MEDSURG 21:55
PROVIDERS: Surgery; Admitting Provider Internal Medicine; Emergency Provider Family Medicine; PCP Family Medicine; Visit Provider Internal Medicine
PROC: 0DJ08ZZ Inspection of Upper Intestinal Tract, Via Natural or Artificial Opening Endoscopic (ICD-10-PCS; CPT 43235; principal; 2023-07-19 11:15)
DX: K92.2 Gastrointestinal hemorrhage, unspecified (principal); D64.9 Anemia, unspecified; Z87.820 Personal history of traumatic brain injury; G80.9 Cerebral palsy, unspecified; K29.70 Gastritis, unspecified, without bleeding; K44.9 Diaphragmatic hernia without obstruction or gangrene
CPT/HCPCS: 36415; 36430; 43239; 71045; 73090; 74177; 76882; 80048; 80053; 82271; 83605; 83690; 85018; 85025; 86850; 86900; 86920; 87040; 88305; 96365; 96375; 99291; 99292; C9113; J2270; J2405; J2543; J2704; J7030; P9016; Q9967

== ENCOUNTER → 2023-09-26 09:30 | Outpatient (BNVA) | payer MEDICAID, SELFPAY | PROVIDERS: PCP Family Medicine; Visit Provider Otolaryngology | DX: K21.00 Gastro-esophageal reflux disease with esophagitis, without bleeding (principal); G80.9 Cerebral palsy, unspecified | CPT/HCPCS: 99203 ==

== ENCOUNTER 2024-03-04 17:37 | Observation (INO) | payer MEDICAID, SELFPAY ==
[2024-03-04] VITALS (10 sets, daily range): BP systolic 106–148; BP diastolic 67–110; PULSE 93–126; RESP 15–20; TEMP 36.8; O2SAT 93–98; BMI 20.9
--- NOTE | 2024-03-04 17:44 | PC.NURSE ---
VITALS OBTAINED BUT UNSURE OF ACCURACY DUE TO PATIENT CONDITION AND CHEWING AT WIRES AND CORDS.
--- NOTE | 2024-03-04 17:46 | CTR_ITS ---
PROCEDURE INFORMATION: Exam: CT Abdomen And Pelvis With Contrast Exam date and time: 03/04/2024 8:20 PM Age: 23 years old Clinical indication: Vomiting; Prior surgery; Surgery date: 6+ months; Surgery type: Jaime rods carole femur; Additional info: Vomiting, coffee-ground emesis TECHNIQUE: Imaging protocol: Computed tomography of the abdomen and pelvis with contrast. Radiation optimization: All CT scans at this facility use at least one of these dose optimization techniques: automated exposure control; mA and/or kV adjustment per patient size (includes targeted exams where dose is matched to clinical indication); or iterative reconstruction. Contrast material: OMNI 350; Contrast volume: 100 ml; Contrast route: INTRAVENOUS (IV); COMPARISON: CT abdomen pelvis w con* [id number] 07/20/2023 3:22 AM RADIATION DOSE METRICS: Total DLP (mGy-cm): 723.26 FINDINGS: Tubes, catheters and devices: Catheter courses within the anterior abdominal wall and terminates within the peritoneal cavity. Lungs: Mild ground-glass opacities in the anterior right lower lung. Diaphragm: Small hiatal hernia. Liver: Normal. No mass. Gallbladder and biliary ducts: Normal. No calcified stones. No ductal dilation. Pancreas: Normal. No ductal dilation. Spleen: Normal. No splenomegaly. Adrenal glands: Normal. No mass. Kidneys and ureters: Normal. No hydronephrosis. Stomach and bowel: Diverticulosis without evidence of diverticulitis. Appendix: No evidence of appendicitis. Intraperitoneal space: Unremarkable. No free air. No significant fluid collection. Vasculature: Unremarkable. No abdominal aortic aneurysm. Lymph nodes: Unremarkable. No enlarged lymph nodes. Urinary bladder: Unremarkable as visualized. Reproductive: Unremarkable as visualized. Bones/joints: Thoracolumbar fusion hardware. Hardware within the proximal bilateral femurs. Soft tissues: Unremarkable. CT/CT abdomen pelvis w con* [id number] IMPRESSION: 1. No acute findings within the abdomen or pelvis. 2. Small hiatal hernia. 3. Diverticulosis without evidence of diverticulitis. 4. Catheter courses within the anterior abdominal wall and terminates within the peritoneal cavity.
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
[2024-03-04 18:05] LABS: Basophils % 0.2 %; Hematocrit 40.4 % (37-53); Lymphocytes % 7.8 %; Mean Corpuscular HGB Conc 28.5 g/dL (30-55); Mean Corpuscular Hemoglobin 20.8 pg (27-33); Mean Corpuscular Volume 73.2 fl (82-101); Mean Platelet Volume 10.1 fL (7.4-10.4); Monocytes # 0.9 10^3/uL (0.2-0.9); Neutrophils # 11.24 10^3/uL (1.8-7.7); Neutrophils % 84.6 %; Nucleated Red Blood Cells % 0 %; Platelet Count 439 10^3/cmm (157-399); Red Blood Count 5.52 10^6/uL (3.85-5.65); Red Cell Distribution Width 16.8 % (12.1-15.1); White Blood Count 13.29 10^3/uL (3.29-11.43)
[2024-03-04 18:25] LABS: Alanine Aminotransferase 20 U/L (0-41); Albumin Level 4.4 g/dL (3.5-5.2); Alkaline Phosphatase 97 U/L (40-130); Anion Gap 16.5 (5-19); Aspartate Amino Transferase 13 U/L (0-40); Blood Urea Nitrogen 13 mg/dL (6-20); C Reactive Protein 9.7 mg/L (0.0-4.9); Carbon Dioxide 28 mmol/L (22-29); Chloride 108 mmol/L (98-107); Creatinine Clr Calc Pharmacy 170.4201; Globulin 3.7 g/dL (1.3-4.6); Glomerular Filtration Rate 170.1 mL/min (90-130); Glucose 142 mg/dL (65-115); Lipase 33 U/L (13-60); Osmolality Calculated 311 mOsm/kg (285-295); Potassium 3.5 mmol/L (3.5-5.1); Sodium 149 mmol/L (136-145); Total Bilirubin 0.3 mg/dL (0.15-1.2); Total Protein 8.1 g/dL (6.6-8.7)
[2024-03-04 18:26] LABS: Lactic Sepsis W/Reflex 2.2 mmol/L (0.5-2.2)
[2024-03-04] MEDS: sodium chloride 0.9% 1,000 ML 999 ML IV ×2 (18:26→22:54)
[2024-03-04] MEDS: ondansetron 2 mg/ML SDV 2 mL 4 MG IVP (18:26)
[2024-03-04 19:49] LABS: Reflex Lactate Order REFLEX LACTIC ORDERD
[2024-03-04] MEDS: ketamine 100 mg/mL Inj 5 mL IVP (20:07)
[2024-03-04] MEDS: iohexol 350 mg/mL 500 mL Btl (per mL) IV (20:25)
[2024-03-04 21:07] LABS: Add Urine Microscopic? NO; Charge for UA Resulting for Rev
[2024-03-04 21:13] LABS: Bilirubin Urine Neg (Negative); Blood Urine Neg (Negative); Glucose Urine UA Norm (Normal); Ketones Urine 1+ (Negative); Nitrate Urine Negative (Negative); Protein Urine Neg (Negative); Urine Appearance Clear (CLEAR); Urine Color Yellow (Yellow); pH Urine 8 (5-7)
[2024-03-04 21:14] LABS: Leukocyte Esterase Urine Negative (Negative); Urobilinogen Urine Neg (Negative)
[2024-03-04 21:20] LABS: Lactic Acid level (Lactate) 1.5 mmol/L (0.5-2.2)
[2024-03-05] VITALS (18 sets, daily range): BP systolic 106–153; BP diastolic 55–107; PULSE 88–111; RESP 16–22; TEMP 36.3–37.2; O2SAT 90–99
[2024-03-05 00:26] LABS: Hematocrit 42.2 % (37-53)
[2024-03-05] MEDS: ondansetron 2 mg/ML SDV 2 mL 4 MG IVP (01:05)
[2024-03-05] MEDS: pantoprazole 40 mg SDV IVP ×3 (01:06→17:01)
[2024-03-05 01:29] LABS: Gastricult Occult Blood Positive (Negative)
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
[2024-03-05] MEDS: sodium chloride 0.9% 1,000 ML 75 ML IV ×2 (06:51→20:37)
--- NOTE | 2024-03-05 07:25 | PC.PHAR ---
PT IS FROM [facility]. CURRENT MED LIST SCANNED INTO PT CHART.
--- NOTE | 2024-03-05 11:24 | P.ANESASSM_ITS ---
Pre-Anesthetic Assessment Height/Weight: Height 1.68 m Weight 58.967 kg Temp Pulse Resp BP Pulse Ox O2 Del Method 97.4 F L 89 18 128/73 95 Room Air 03/05/24 08:25 03/05/24 08:29 03/05/24 08:29 03/05/24 08:25 03/05/24 08:29 03/05/24 08:29 Preop Diagnosis: Coffee Ground Emesis Operation Date: 03/05/24 13:30 Proposed Procedures p EGD(Not Applicable) - Chuckie Nunes DO Familial anesthetic complications: none- per mother 2 previous EGDs noted. Was Beta Anatoly taken within 24 hours: N/A Was Clonidine taken within 24 hours: N/A Last intake: NPO since midnight according to RN caring for patient. Social No alcohol and No tobacco Exam alert (non-verbal), clear to auscultation bilaterally and regular rate & rhythm Airway Submandibular: Other Cervical ROM: Other Dentition: other Comments: Comments: patient non-verbal previous Cerebral Palsy TBI. 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 previous PEG tube. Metabolic None reported [facility] facility patient, previous TBI (childhood) Cerebral Palsy. Neuropsych Deficit Anesthetic Plan ASA status: 3 Anesthesia: MAC Other: SNF reported 6-8 episodes of coffee ground emesis, none observed in ED or enroute by EMS. Hgb stable. Medications/Allergies Home Medications Medication Instructions Recorded Confirmed Last Taken Type bisacodyl 10 mg rectal suppository 10 mg [place] DAILY PRN Constipation 05/12/22 03/05/24 05/18/22 History acetaminophen 325 mg tablet 325 mg PO Q6H PRN Pain 07/18/23 03/05/24 Unknown History (Tylenol) famotidine 40 mg tablet 40 mg PO BID@08,17 07/18/23 03/05/24 Unknown History magnesium hydroxide 400 mg/5 mL 30 ml PO DAILY PRN Constipation 07/18/23 03/05/24 Unknown History oral suspension (Milk of Magnesia) melatonin 1 mg tablet 1 mg PO BEDTIME@20 07/18/23 03/05/24 Unknown History pantoprazole 40 mg tablet,delayed 40 mg PO DAILY@06 07/18/23 03/05/24 Unknown History release (Protonix) polyethylene glycol 3350 17 gram 17 g PO DAILY@08 07/18/23 03/05/24 Unknown History oral powder packet (Miralax) sodium phosphates 19 gram-7 118 ml [place] DAILY PRN Constipation 07/18/23 03/05/24 Unknown History gram/118 mL enema (Fvxif-Vp-Yps Enema) ondansetron 4 mg disintegrating 4 mg PO Q8H PRN Nausea 09/26/23 03/05/24 Unknown History tablet Allergies Allergy/AdvReac Type Severity Reaction Status Date / Time adhesive Allergy ALGY-Bliste Verified 09/26/23 09:35 r adhesive tape Allergy ALGY-Bliste Verified 09/26/23 09:35 r metoclopramide [From Reglan] Allergy seizure Verified 09/26/23 09:35 Current Medications Generic Name Dose Route Start Last Admin Trade Name Freq PRN Reason Stop Dose Admin Sodium Chloride 1,000 mls @ 75 mls/hr 03/05/24 06:15 03/05/24 06:51 Sodium Chloride 0.9% IV 75 mls/hr .[id number] NORBERTO Administration Pantoprazole Sodium 40 mg 03/05/24 09:00 03/05/24 09:43 Pantoprazole 40 Mg Sdv IVP 40 mg BID NORBERTO Administration PFSH Anesthesia Medical History Cerebral palsy Gastritis Surgical History Hx of brain surgery Surgical history unknown Social History Smoking and tobacco/nicotine status: never used tobacco/nicotine Housing: [facility] Data Anesthesia 03/05/24 11:52 03/04/24 17:59 Short CBC 03/04/24 03/05/24 Range/Units 17:59 00:00 WBC 13.29 H (3.29-11.43) 10^3/uL Hgb 11.50 11.30 (11.27-16.99) g/dL Hct 40.4 42.2 (37-53) % MCV 73.2 L (82-101) fl Plt Count 439 H (157-399) 10^3/cmm Neut % (Auto) 84.6 % Neut # (Auto) 11.24 H (1.8-7.7) 10^3/uL BMP 03/04/24 17:59 Sodium 149 H Potassium 3.5 Chloride 108 H Carbon Dioxide 28 BUN 13 Creatinine 0.6 L Glucose 142 H Calcium 9.0 Liver Function 03/04/24 Range/Units 17:59 Total Bilirubin 0.3 (0.15-1.2) mg/dL AST 13 (0-40) U/L ALT 20 (0-41) U/L Alkaline Phosphatase 97 (40-130) U/L Albumin 4.4 (3.5-5.2) g/dL Urine 03/04/24 Range/Units 20:52 Urine Color Yellow (Yellow) Urine Appearance Clear (CLEAR) Urine pH 8 H (5-7) Ur Specific [place] 1.010 (1.005-1.030) Urine Protein Neg (Negative) Urine Glucose (UA) Norm (Normal) Urine Ketones 1+ H (Negative) Urine Nitrate Negative (Negative) Urine Bilirubin Neg (Negative) Ur Leukocyte Esterase Negative (Negative) Coags 03/04/24 17:59 C-Reactive Protein 9.7 H Cardiac Studies: 2 No Data to Display
[2024-03-05 12:02] LABS: Basophils % 0.3 %; Eosinophils % 0.3 %; Hematocrit 34.8 % (37-53); Lymphocytes % 16.4 %; Mean Corpuscular HGB Conc 27.9 g/dL (30-55); Mean Corpuscular Hemoglobin 20.8 pg (27-33); Mean Corpuscular Volume 74.7 fl (82-101); Mean Platelet Volume 10.1 fL (7.4-10.4); Monocytes # 1.3 10^3/uL (0.2-0.9); Monocytes % 11.2 %; Neutrophils # 8.55 10^3/uL (1.8-7.7); Neutrophils % 71.3 %; Nucleated Red Blood Cells % 0 %; Platelet Count 315 10^3/cmm (157-399); Red Blood Count 4.66 10^6/uL (3.85-5.65); Red Cell Distribution Width 17.2 % (12.1-15.1); White Blood Count 11.98 10^3/uL (3.29-11.43)
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
[2024-03-05] MEDS: EPINEPHrine 1 mg/mL INJ XX (12:53)
[2024-03-05 13:02] LABS: Ferritin 11 ng/mL (30-400); Iron 20 ug/dL (59-158); Percent Saturation 5.8 % (20-50); Total Iron Binding Capacity 342 mcg/dl; Unsaturated Iron Binding 322 ug/dL (112-347); Vitamin B12 627 pg/mL (232-1245)
--- NOTE | 2024-03-05 13:15 | ANE.PACU2 ---
Inpatient post-anesthesia follow up: Airway intact: Yes Vital signs: Temperature 97.9 F Pulse Rate 92 Respiratory Rate 19 Blood Pressure 134/75 Pulse Oximetry 90 Oxygen Delivery Me thod Room Air Oxygen Flow Rate Fraction of Inspir ed Oxygen Hydration adequate: Yes Nausea and vomiting: No Pain level: 1 Mental status: Baseline
--- NOTE | 2024-03-05 14:13 | PM.PN ---
Subjective Subjective: Patient was seen this morning, he is noncommunicative normotensive, on room air, Vitals/I&O/Wt Last Vital Signs Temp 97.9 F 03/05/24 13:38 Pulse 92 03/05/24 13:38 Resp 19 H 03/05/24 13:38 BP 134/75 03/05/24 13:38 Pulse Ox 90 03/05/24 13:38 O2 Del Method Room Air 03/05/24 13:38 03/04/24 03/05/24 03/05/24 22:59 06:59 14:59 Intake Total 1999 Balance 1999 Weight last 48 hrs Weight 58.967 kg Physical Exam Const: COMMON NORMALS: no acute distress EXAM LIMITATIONS: altered mental status ORIENTATION/CONSCIOUSNESS: Yes awake; not oriented to person, not oriented to place and not oriented to time Resp: COMMON NORMALS: normal respiratory effort, No retractions, No use of accessory muscles and clear to auscultation bilaterally AUSCULTATION: clear to auscultation bilaterally Cardio: COMMON NORMALS: regular rate, regular rhythm, S1 normal heart sound present and S2 normal heart sound present RATE: regular rate RHYTHM: regular rhythm HEART SOUNDS: S1 normal heart sound present and S2 normal heart sound present GI: COMMON NORMALS: Normal to inspection, nondistended, normoactive bowel sounds present and non-tender Extremity: COMMON NORMALS: no pedal edema Neuro: SENSORIUM/ORIENTATION: No oriented to person, No oriented to place and No oriented to time Data 03/05/24 11:52 03/04/24 17:59 A&P Assessment and plan (1) Nausea and vomiting: (2) Upper GI bleed: (3) Gastroesophageal reflux disease with esophagitis: Qualifiers: Esophagitis bleeding: without hemorrhage Qualified Code(s): K21.00 - Gastro-esophageal reflux disease with esophagitis, without bleeding (4) Acute upper GI bleed: Plan Coffee-ground emesis Previous EGD report reviewed, patient was transferred to [facility] for deep enteroscopy, will request records from [facility] I will keep patient on n.p.o. status for now Continue Protonix 40 IV twice daily Hemoglobin 9.7 Hemodynamically stable ? Has acute on chronic hyponatremia, monitor Afebrile DVT prophylaxis: SCDs CT abdomen pelvis unremarkable ? 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 Iron studies seem to suggest iron deficiency, start IV iron Full code Dr. Nunes consulted, please discuss CT scan findings with Dr. uNnes in the morning CT scan findings: Catheter courses within the anterior abdominal wall and terminates within the peritoneal cavity. Plan for today 1 dose IV iron, will receive EGD, Attestations Medical Necessity Statement*: Patient requires hospitalization for coffee-ground emesis Diagnoses Nausea and vomiting R11.2 Upper GI bleed K92.2 Gastroesophageal reflux disease with esophagitis without hemorrhage K21.00 Esophagitis bleeding: without hemorrhage Acute upper GI bleed K92.2
[2024-03-05] MEDS: iron sucrose 200 MG in sodium chloride 0.9% (100 ml) 100 ML 220 MG IV (14:43)
[2024-03-06] VITALS: BP 115/73; PULSE 79; RESP 19; TEMP 36.4; O2SAT 98
[2024-03-06 04:00] VITALS: PULSE 78; RESP 18; TEMP 36.5; O2SAT 94
[2024-03-06 08:00] VITALS: BP 122/80; PULSE 101; RESP 18; TEMP 36.7; O2SAT 95
[2024-03-06 08:26] VITALS: PULSE 88; RESP 16; O2SAT 94
[2024-03-06] MEDS: pantoprazole 40 mg SDV IVP (09:59)
[2024-03-06] MEDS: sodium chloride 0.9% 1,000 ML 75 ML IV (09:59)
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
[2024-03-06 11:05] LABS: Basophils # 0.1 10^3/uL (0.0-0.1); Basophils % 0.5 %; Eosinophils # 0.3 10^3/uL (0.0-0.8); Eosinophils % 3.1 %; Lymphocytes # 2.7 10^3/uL (0.8-4.8); Lymphocytes % 25.4 %; Mean Corpuscular HGB Conc 28.1 g/dL (30-55); Mean Corpuscular Hemoglobin 21.1 pg (27-33); Mean Corpuscular Volume 75.1 fl (82-101); Mean Platelet Volume 9.9 fL (7.4-10.4); Monocytes % 9.7 %; Neutrophils # 6.48 10^3/uL (1.8-7.7); Neutrophils % 60.6 %; Nucleated Red Blood Cells % 0 %; Platelet Count 330 10^3/cmm (157-399); Red Blood Count 4.13 10^6/uL (3.85-5.65); Red Cell Distribution Width 17.4 % (12.1-15.1); White Blood Count 10.68 10^3/uL (3.29-11.43)
[2024-03-06 11:17] LABS: Anion Gap 11.7 (5-19); Blood Urea Nitrogen 8 mg/dL (6-20); Calcium 8.2 mg/dL (8.5-10.5); Carbon Dioxide 24 mmol/L (22-29); Chloride 118 mmol/L (98-107); Glomerular Filtration Rate 271.5 mL/min (90-130); Glucose 91 mg/dL (65-115); Magnesium 2.4 mg/dL (1.7-2.3); Osmolality Calculated 308 mOsm/kg (285-295); Potassium 3.7 mmol/L (3.5-5.1); Sodium 150 mmol/L (136-145)
[2024-03-06 11:18] LABS: Creatinine Clr Calc Pharmacy 265.2262
[2024-03-06] MEDS: iron sucrose 200 MG in sodium chloride 0.9% (100 ml) 100 ML 220 MG IV (11:28)
[2024-03-06 11:54] VITALS: BP 113/65; PULSE 102; RESP 17; TEMP 37; O2SAT 94
--- NOTE | 2024-03-06 12:55 | PC.NURSE ---
Report called to Renetta Powers LPN at [facility]. New medications discussed along with EGD and findings.
--- NOTE | 2024-03-06 13:30 | PC.NURSE ---
Discharge Note Patient discharged to [[facility]] via [w/c to ready transport vehicle] accompanied by [Ready transport personnel]. Discharge instructions reviewed with patient and/or in store representative. Mobile pharmacy medications and/or prescriptions provided. Belongings/home medications returned.
[2024-03-06 13:31] VITALS: BP 113/65; PULSE 102; RESP 17; TEMP 37; O2SAT 94
--- NOTE | 2024-03-06 13:35 | PC.NURSE ---
Noted that pt apparently had a stuffed rabbit upon admission; however, no stuffed rabbit was seen in the room at discharge to send with the pt.
== END 2024-03-06 13:36 | disposition skilled nursing facility (03) ==
LOC: ER 03-05 00:54 → MEDSURG 03-05 01:54
PROVIDERS: Emergency Medicine; Surgery; Admitting Provider Internal Medicine; Emergency Provider Physician Assistant; PCP Family Medicine; Visit Provider Family Medicine
PROC: 0DJ08ZZ Inspection of Upper Intestinal Tract, Via Natural or Artificial Opening Endoscopic (ICD-10-PCS; CPT 43235; principal; 2024-03-05 13:30)
DX: R11.2 Nausea with vomiting, unspecified (principal); K92.2 Gastrointestinal hemorrhage, unspecified; K21.00 Gastro-esophageal reflux disease with esophagitis, without bleeding; G80.9 Cerebral palsy, unspecified; K44.9 Diaphragmatic hernia without obstruction or gangrene
CPT/HCPCS: 36415; 43239; 74177; 80048; 80053; 81003; 82271; 82607; 82728; 83540; 83550; 83605; 83690; 83735; 85014; 85018; 85025; 86140; 88305; 96365; 96375; 99285; G0378; J0171; J1756; J2405; J2470; J2704; J3490; J7030; Q9967

== ENCOUNTER 2025-04-05 08:27 | Emergency (ER) | payer MEDICAID, SELFPAY ==
--- OUTSIDE RECORDS SUMMARY | 2015-03-31 03:05 | XMS_ITS | Continuity of Care Document ---
Author Organization [facility] Address [address] [place] [address] Phone Care Team Providers Care Clinical Neuropsychologist Name Role Phone Florin CUNNINGHAM, Sean Unavailable Unavailable Allergies, Adverse Reactions, Alerts Substance Reaction Status Criticality VANCOMYCIN ANALOGUES anaphylaxis Active No Info rmation Medications Medication Instructions Dosage Effective Dates (start - stop) Status Comments Keppra 750 mg tablet - Active baclofen 10 mg tablet - Active felbamate 600 mg/5 mL oral suspension - Active Onfi 10 mg tablet - Active senna 8.6 mg tablet - Active Advance Directives Directive Yes / No Effective Date File Name No Information Encounters Encounter Description Practice Location Reason(s) For Visit Diagnoses Date Provider Providers Copied on Encounter [facility], [address] [place], [place] [address], [place], [address], tel:[phone] [facility] Neuromuscular scoliosis 5 Florin Estrada. [address] [place] [address], [id number] . tel:[phone] Referring Provider: Everardo Beauchamp, [address], [place], [address]. tel:[phone] Family History Family Member Type Diagnosis Age At Onset No Information Payers Payer name Insurance type Covered green party ID Authoriza tion(s) No Information Social History Type Description Quantity Date Captured Comments Sex Male Smoking Status No Information Vital Signs Date / Time: Height Weight BMI Pulse Rate Blood Pressure Temperature Respiratory Rate Body Surface Area Head Circumference Head Circ. Percentile Wt./Chuck. Percentile BMI percentile Pulse Ox Inhaled Ox 8:32 AM 32.296 kg (71.20 lbs) Chief Complaint And Reason For Visit No Information Reason For Referral Reason For Referral No Information Plan Of Treatment Date Type Action Status Referral Ordered: RADEX SPI THORACOLMBR STANDING SCOLIOSIS ordered History Of Present Illness Encounter Date Complaint History Of Prese nt Illness No Information Functional Status Date Functional Assessmen t No Information Instructions Date Instruction Additional Infor mation No Information Assessments Type Assessment Date assessment Neuromuscular scoliosis 015 Patient Care Teams Name Effective Dates (start - stop) Status Members No Information
--- OUTSIDE RECORDS SUMMARY | 2018-12-06 07:08 | XMS_ITS | Continuity of Care Document ---
Author Organization [facility] Address [address] [place] [address] Phone Care Team Providers Care Inspector Eyeglass Name Role Phone Ingrid Andrew MD Unavailable Unavailable Allergies, Adverse Reactions, Alerts Substance Reaction Status Criticality vancomycin Anaphylaxis(severe) Active No Infor mation Medications Medication Instructions Dosage Effective Dates (start - stop) Status Comments senna 8.6 mg tablet GIVE PARUL 4 TO 8 TABLETS BY MOUTH EVERY DAY NEEDED FOR CONSTIPATION - Active POLYETH GLYCOL 3350 NF POWDER 527GM TAKE 1 CAPFUL AND DISSOLVE IN 8 OZ OF LIQUID; DRINKING ENTIRE CONTENTS TWICE DAILY. - Active Perineal Skin Cleanser 0.1 % 1 applic by Topical route 4 to 8 times per day prn skin cleansing - Active Please dispense 1 spray bottle PediaSure with Fiber 0.06 gram-1.5 kcal/mL oral liquid give 4 cans per NG feeding daily - Active To run at 70ml per hour for 12 hours a day. Tegaderm 2 X 2 3/4 Bandage as needed - Active To help secure NG tube PediaSure Enteral Formula 1.0 0.03 gram-1 kcal/mL Oral Susp - Active use as directe d - 3 - 4 cans per day felbamate 600 mg/5 mL oral suspension takes 8 ml in AM, 4 ml in afternoon and 2 ml at night - Active Diastat AcuDial 5 mg-7.5 mg-10 mg Rectal Kit - Active clonazepam 0.25 mg Tab, Rapid Dissolve - Active Uses PRN seizures baclofen 10 mg Tab take 1 tablet (10MG) by oral route 4 times every day 10 MG - Active Takes 10 mg in AM and 25 mg in PM levetiracetam 750 mg Tab take 1 tablet (750MG) by oral route 2 times every day 750 MG - Active Onfi 5 mg Tab take 1 Tablet (5MG) by oral route 2 times every day - Active Advance Directives Directive Yes / No Effective Date File Name No Information Encounters Encounter Description Practice Location Reason(s) For Visit Diagnoses Date Provider Providers Copied on Encounter [facility], [address], [place], [place], [address] [place] [address] , tel: [phone] [facility] No Information 9 Kamran Quintero. [address], [address], [place], [place], [address], . tel:[phone] [facility], [address], [place], [place], [address] , tel: [phone] [facility] Scoliosis associated with other condition 0 8 Nito Bowman. [address], [address], [place], [place], [address], [place]. tel:[phone] [facility], [address], [place], [place], [address] , tel: [phone] [facility] No Information 8 Nito Bowman. [address], [address], [place], [place], [address], [place]. tel:[phone] [facility], [address], [place], [place], [address] , tel: [phone] [facility] Strabismus in other neuromuscular disordersAbnormal involuntary movementsDelayed milestonesScoliosis associated with other condition Fe-2 8 Nito Bowman. [address], [address], [place], [place], [address], . tel:[phone] [facility], [address], [place], [place], [address] , [place] tel: [phone] [facility] Fecal incontinence 7 Beauchamp Colby. [address], [address], [place], [place], [address], [place]. tel:[phone] [facility], [address], [place], [place], [address] , [place] tel: [phone] [facility] Abnormal laboratory test 7 Nito Bowman. [address], [address], [place], [place], [address], [place]. tel:[phone] [facility], [address], [place], [address] , [place] tel: [phone] [facility] Cloudy urine 7 Beauchamp Colby. [address], [address], [place], [place], [address], [place]. tel:[phone] [facility], [address], [place], [address] , [place] tel: [phone] [facility] No Information 7 Beauchamp Colby. [address], [address], [place], [place], [address], [place]. tel:[phone] [facility], [address], [place], [address] , [place] tel: [phone] [facility] Personal history of traumatic brain injuryStrabismus in other neuromuscular disordersCerebral palsy, quadriplegicAutisti c disorder 7 Beauchamp Colby. [address], [address], [place], [place], [address], [place]. tel:[phone] [facility], [address], [place], [place], [address] , tel: [phone] [facility] Personal history of traumatic brain injuryFeeding difficulties 7 Beauchamp Colby. [address], [address], [place], [place], [address], [place]. tel:[phone] [facility], [address], [place], [place], [address] , [place] tel: [phone] [facility] Encounter for routine childHistory of traumatic brain injuryCloudy urine Mar- 4201 7 Nito Bowman. [address], [address], [place], [place], [address], [place]. tel:[phone] Referring Provider: Colby Beauchamp, [address], [place], [address] . tel:[phone] [facility], [address], [place], [address] , [place] tel: [phone] [facility] Feeding difficulties and mismanagement 9-201 7 Nito Bowman. [address], [address], [place], [place], [address], [place]. tel:[phone] [facility], [address], [place], [place], [address] , [place] tel: [phone] [facility] Feeding difficulties and mismanagement 0-201 7 Nito Bowman. [address], [address], [place], [place], [address], [place]. tel:[phone] [facility], [address], [place], [address] , [place] tel: [phone] [facility] Abnormal involuntary movementsFeeding difficulties and mismanagementScolio sis associated with other conditionStrabismus in other neuromuscular disorders Jan- 3-201 7 Nito Bowman. [address], [address], [place], [place], [address], [place]. tel:[phone] [facility], [address], [place], [address] , [place] tel: [phone] [facility] Cerebral palsy, quadriplegic Apr-2 6-201 7 Nito Bowman. [address], [address], [place], [place], [address], [place]. tel:[phone] [facility], [address], [place], [place], [address] , [place] tel: [phone] [facility] No Information Jul- 6 Nito Bowman. [address], [address], [place], [place], [address], [place]. tel:[phone] [facility], [address], [place], [address] , [place] tel: [phone] [facility] Fecal incontinence 201 6 Nito Bowman. [address], [address], [place], [place], [address], [place]. tel:[phone] [facility], [address], [place], [place], [address] , tel: [phone] [facility] Quadriplegic cerebral palsySeizure in pediatric patientAutistic disorder Sep-1 6 Nito Bowman. [address], [address], [place], [place], [address], [place]. tel:[phone] [facility], [address], [place], [place], [address] , [place] tel: [phone] [facility] Paraplegic cerebral palsySeizure in pediatric patientAutistic disorder Sep-1 5-201 6 Beauchamp Colby. [address], [address], [place], [place], [address], [place]. tel:[phone] [facility], [address], [place], [address] , [place] tel: [phone] [facility] Cerebral palsy, quadriplegicSeizure in pediatric patientAutistic disorder Sep-0 8-201 6 Nito Bowman. [address], [address], [place], [place], [address], [place]. tel:[phone] [facility], [address], [place], [address] , [place] tel: [phone] [facility] Encounter for well child exam with abnormal findingsCerebral palsy, quadriplegicSeizure sAutistic disorder 6 Malathi Ann. [address], [address], [place], [place], [address]. tel:[phone] Referring Provider: Colby Beauchamp, [address], [place], [address] . tel:[phone] [facility], [address], [place], [place], [address] , tel: [phone] [facility] Preoperative examinationAcne vulgaris 6 Nito Bowman. [address], [address], [place], [place], [address], [place]. tel:[phone] Referring Provider: Colby Beaucahmp, [address], [place], [address] . tel:[phone] [facility], [address], [place], [place], [address] , [place] tel: [phone] [facility] Autistic disorderSeizuresPer toby history of traumatic brain injury 5 Nito Bowman. [address], [address], [place], [place], [address], [place]. tel:[phone] [facility], [address], [place], [place], [address] , tel: [phone] [facility] Preoperative examination 5 Nito Bowman. [address], [address], [place], [place], [address], [place]. tel:[phone] Referring Provider: Colby Beauchamp, [address], [place], [address] . tel:[phone] [facility], [address], [place], [place], [address] , tel: [phone] [facility] Routine or child health checkFeeding difficultiesOther convulsionsScoliosi s associated with other conditions 5 Nito Bowman. [address], [address], [place], [place], [address], . tel:[phone] Referring Provider: Colby Beauchamp, [address], [place], [address] . tel:[phone] [facility], [address], [place], [address] , [place] tel: [phone] [facility] Scoliosis associated with other conditions 5 Nito Bowman. [address], [address], [place], [place], [address], [place]. tel:[phone] [facility], [address], [place], [place], [address] , tel: [phone] [facility] HX TRAUMATC BRAIN INJURYScoliosis associated with other conditionsFeeding difficulties and mismanagementAbnorm al involuntary movementsDelayed milestonesNeed for prophylactic vaccination and inoculation against other specified single bacterial diseaseRoutine or child health check 4 Malathi Ann. [address], [address], [place], [place], [address]. tel:[phone] Referring Provider: Colby Beauchamp, [address], [place], [address] . tel:[phone] [facility], [address], [place], [address] , [place] tel: [phone] [facility] No Information 4 Kamran Quintero. [address], [address], [place], [place], [address], [place]. tel:[phone] [facility], [address], [place], [place], [address] , [place] tel: [phone] [facility] PneumoniaHX TRAUMATC BRAIN INJURYInfluenza with other respiratory manifestations 4 Malathi Ann. [address], [address], [place], [place], [address]. tel:[phone] Referring Provider: Colby Beauchamp, [address], [place], [address] . tel:[phone] [facility], [address], [place], [place], [address] , tel: [phone] [facility] No Information 3 Kamran Quintero. [address], [address], [place], [place], [address], [place]. [phone] [facility], [address], [place], [place], [address] , tel: [phone] Amanda Mcqueens Skin infectionConstipati onOther, multiple and ill-defined fractures of lower limb, closed 3 Malathi Ann. [address], [address], [place], [place], [address]. tel:[phone] Referring Provider: Colby Beauchamp, [address], [place], [address] . tel:[phone] [facility], [address], [place], [place], [address] , tel: [phone] Amanda Mcqueens ROUTINE CHILD HEALTH EXAMROUTINE CHILD HEALTH EXAMROUTINE CHILD HEALTH EXAMROUTINE CHILD HEALTH EXAMROUTINE CHILD HEALTH EXAMROUTINE CHILD HEALTH EXAMROUTINE CHILD HEALTH EXAMROUTINE CHILD HEALTH EXAMCONVULSIONS NECAbnormal involuntary movementsRoutine or child health checkOther convulsionsAbnormal involuntary movementsRoutine infant or child health checkOther convulsionsAbnormal involuntary movementsRoutine infant or child health checkOther convulsionsAbnormal involuntary movementsOther convulsionsRoutine or child health checkAbnormal involuntary movementsOther convulsionsAbnormal involuntary movementsRoutine infant or child health checkOther convulsionsAbnormal involuntary movementsRoutine infant or child health checkOther convulsionsAbnormal involuntary movementsRoutine or child health checkRoutine infant or child health checkOther convulsionsAbnormal involuntary movementsRoutine infant or child health checkOther convulsionsAbnormal involuntary movementsRoutine or child health check 3 Malathi Ann. [address], [address], [place], [place], [address]. tel:[phone] Referring Provider: Ingrid Jaquez, [address], [place], [address] . tel:[phone] [facility], [address], [place], [place], [address] , tel: [phone] Amanda Barry Encounter for care related to feeding tubeConstipation - functional Nov- 3 Kamran Quintero. [address], [address], [place], [place], [address], [place]. tel:[phone] Referring Provider: Ingrid Jaquez, [address], [place], [address] . tel:[phone] [facility], [address], [place], [place], [address] , tel: [phone] Amanda Barry Feeding difficultiesOtitis Media, suppurativeOtitis Externa, infective, unspecPain Oct- 3 Kamran Quintero. [address], [address], [place], [place], [address], . tel:[phone] Referring Provider: Ingrid Jaquez, [address], [place], [address] . tel:[phone] [facility], [address], [place], [place], [address] , tel: [phone] Amanda Barry Feeding difficulties and mismanagementRoutin e, well child checkAnorexiaWeight lossRoutine or child health checkAnorexiaLoss of weightRoutine or child health checkAnorexiaLoss of weightOther convulsionsDelayed milestonesOther convulsionsDelayed milestonesRoutine or child health checkAnorexiaLoss of weightOther convulsionsDelayed milestonesRoutine or child health checkAnorexiaLoss of weightOther convulsionsDelayed milestonesRoutine or child health checkAnorexiaLoss of weightRoutine or child health checkOther convulsionsDelayed milestonesRoutine infant or child health checkAnorexiaLoss of weightOther convulsionsDelayed milestonesRoutine infant or child health checkAnorexiaLoss of weight 3 Kamran Quintero. [address], [address], [place], [place], [address], . tel:[phone] Referring Provider: Ingrid Jaquez, [address], [place], [address] . tel:[phone] [facility], [address], [place], [place], [address] , tel: [phone] [facility] Routine or child health checkOther convulsionsScoliosi s associated with other conditionsHX TRAUMATC BRAIN INJURYAbnormal involuntary movementsRoutine infant or child health check 2 Nito Bowman. [address], [address], [place], [place], [address], . tel:[phone] Referring Provider: Colby Beauchamp, [address], [place], [address] . tel:[phone] [facility], [address], [place], [place], [address] , tel: [phone] [facility] No Information 2 Nito Bowman. [address], [address], [place], [place], [address], . tel:[phone] [facility], [address], [place], [place], [address] , tel: [phone] [facility] Routine infant or child health checkRoutine infant or child health check 1 Nito Bowman. [address], [place], [place], [address], . tel:[phone] Referring Provider: Colby Beauchamp, [address], [place], [address] . tel:[phone] [facility], [address], [place], [place], [address] , tel: [phone] [facility] Unspecified psychosocial circumstanceHX TRAUMATC BRAIN INJURYAbnormal involuntary movementsDelayed milestonesFeeding difficulties and mismanagementScolio sis associated with other conditionsStrabismu s in other neuromuscular disordersScoliosis associated with other conditionsUnspecifi ed psychosocial circumstanceHX TRAUMATC BRAIN INJURYAbnormal involuntary movementsDelayed milestonesStrabismu s in other neuromuscular disordersFeeding difficulties and mismanagement 1 Nito Bowman. [address], [address], [place], [place], [address], [place]. tel:[phone] [facility], [address], [place], [place], [address] , tel: [phone] [facility] Scoliosis associated with other conditions 1 Nito Bowman. [address], [address], [place], [place], [address], [place]. tel:[phone] [facility], [address], [place], [place], [address] , tel: [phone] [facility] SCOLIOSIS IN OTH DIS 0 Nito Bowman. [address], [address], [place], [place], [address], [place]. tel:[phone] [facility], [address], [place], [place], [address] , tel: [phone] [facility] CONVULSIONS NEC 8 Nito Bowman. [address], [address], [place], [place], [address], . tel:[phone] Family History Family Member Type Diagnosis Age At Onset No Information Immunizations Vaccine Date Status Comments Fluzone-Flulaval Quad 9836-4350, preservative free, split virus, 0.5mL dosage administered Source: Other Provider Influenza, live, intranasal, quadrivalent administered Source: New Immuniza tion Record Meningococcal MCV4O administered Source: New Immunization Record Tdap administered Source: New Imm unization Record 29150 - Hepatitis_A administered Source: Source Unspecified 73988 - DTaP_DTP_DT_PEDS administered Skye rce: Source Unspecified 82928 - Polio_OPV_IPV administered Source : Source Unspecified 24592 - Varicella administered Source: So urce Unspecified 58724 - MMR administered Source: Source Unspecified Hep A administered Source: New Imm unization Record PCV7 administered Source: New Imm unization Record DTaP/DTP/DT administered Source: New Imm unization Record Varicella administered Source: New Imm unization Record MMR administered Source: New Imm unization Record HIB - unspecified administered Note: Set procedure code where blank for historical non-specific HIB entry. ; Source: New Immunization Record HIB - unspecified administered Note: Set procedure code where blank for historical non-specific HIB entry. ; Source: New Immunization Record Polio administered Source: New Imm unization Record DTaP/DTP/DT administered Source: New Imm unization Record Hep B administered Source: New Imm unization Record PCV7 administered Source: New Imm unization Record Polio administered Source: New Imm unization Record HIB - unspecified administered Note: Set procedure code where blank for historical non-specific HIB entry. ; Source: New Immunization Record DTaP/DTP/DT administered Source: New Imm unization Record PCV7 administered Source: New Imm unization Record Polio administered Source: New Imm unization Record HIB - unspecified administered Note: Set procedure code where blank for historical non-specific HIB entry. ; Source: New Immunization Record DTaP/DTP/DT administered Source: New Imm unization Record Hep B administered Source: New Imm unization Record Hep B administered Source: New Imm unization Record Payers Payer name Insurance type Covered democrat ID Blanche vance(s) [facility] [employer] [facility] CI [id number] [facility] [employer] CI [id number] [facility] [employer] CI [id number] Social History Type Description Quantity Date Captured Comments Alcohol Use Details Unknown Caffeine Use Details Unknown Tobacco Use Status No Information Smoking Status No Information Sex Male Chief Complaint And Reason For Visit No Information Reason For Referral Reason For Referral No Information History Of Present Illness Encounter Date Complaint History Of Prese nt Illness No Information Functional Status Date Functional Assessmen t No Information Instructions Date Instruction Additional Infor mation No Information Assessments Type Assessment Date No Information Patient Care Teams Name Effective Dates (start - stop) Status Members No Information
[2025-04-05 08:29] VITALS: BP 104/51; PULSE 107; RESP 18; TEMP 36.7; O2SAT 98
--- NOTE | 2025-04-05 08:54 | XRR_ITS ---
PROCEDURE INFORMATION: Exam: XR Chest Exam date and time: 04/05/2025 9:07 AM Age: 24 years old Clinical indication: Cough; Prior surgery; Surgery date: 6+ months; Surgery type: Jaime rods; Additional info: Dark colored emesis this am; Concern for aspiration; Episode unwitnessed, PT nonverbal, autistic, HX of pica TECHNIQUE: Imaging protocol: Radiologic exam of the chest. Views: 1 view. COMPARISON: CR XR chest 1V portable [id number] 07/20/2023 6:20 PM FINDINGS: Lungs: Unremarkable. No consolidation. Pleural spaces: Unremarkable. No pleural effusion. No pneumothorax. Heart/Mediastinum: Unremarkable. No cardiomegaly. Bones/joints: Spinal fusion with Cueto rods from the upper thoracic to the lumbar spine is noted. XR/XR chest 1V portable [id number] IMPRESSION: Stable findings.
[2025-04-05 09:00] LABS: Hematocrit 52.4 % (37-53); Hemoglobin 16.10 g/dL (11.27-16.99); Mean Corpuscular HGB Conc 30.7 g/dL (30-55); Mean Corpuscular Hemoglobin 28.4 pg (27-33); Mean Corpuscular Volume 92.4 fl (82-101); Nucleated Red Blood Cells % 0 %; Platelet Count 250 10^3/cmm (157-399); Red Blood Count 5.67 10^6/uL (3.85-5.65); White Blood Count 7.54 10^3/uL (3.29-11.43)
[2025-04-05 09:13] LABS: Alanine Aminotransferase 24 U/L (0-41); Albumin Level 4.2 g/dL (3.5-5.2); Alkaline Phosphatase 96 U/L (40-130); Aspartate Amino Transferase 15 U/L (0-40); Blood Urea Nitrogen 11 mg/dL (6-20); Calcium 9.3 mg/dL (8.5-10.5); Carbon Dioxide 22 mmol/L (22-29); Chloride 108 mmol/L (98-107); Globulin 3.4 g/dL (1.3-4.6); Glucose 101 mg/dL (65-115); Osmolality Calculated 290 mOsm/kg (285-295); Sodium 140 mmol/L (136-145); Total Protein 7.6 g/dL (6.6-8.7)
[2025-04-05 09:14] LABS: Anion Gap 14.6 (5-19); Potassium 4.6 mmol/L (3.5-5.1)
[2025-04-05] MEDS: ondansetron 2 mg/ML SDV 2 mL 4 MG IVP (09:17)
[2025-04-05 09:57] LABS: Add Urine Microscopic? NO
[2025-04-05 10:08] LABS: UA Manual Slide Review YES
[2025-04-05 10:10] LABS: Charge for UA Resulting for Rev
--- NOTE | 2025-04-05 10:42 | CTR_ITS ---
PROCEDURE INFORMATION: Exam: CT Abdomen And Pelvis Without Contrast Exam date and time: 04/05/2025 10:54 AM Age: 24 years old Clinical indication: Abdominal pain; Prior surgery; Surgery date: 6+ months; Surgery type: Back TECHNIQUE: Imaging protocol: Computed tomography of the abdomen and pelvis without contrast. Radiation optimization: All CT scans at this facility use at least one of these dose optimization techniques: automated exposure control; mA and/or kV adjustment per patient size (includes targeted exams where dose is matched to clinical indication); or iterative reconstruction. COMPARISON: CT abdomen pelvis w con* [id number] 03/04/2024 8:20 PM RADIATION DOSE METRICS: Total DLP (mGy-cm): 1469.63 FINDINGS: Tubes, catheters and devices: [employer] shunt is present along the soft tissues anteriorly and coiled in the pelvis. Lungs: There is increased density in the right middle lobe which may be atelectasis or early infiltrate. Liver: Unremarkable. No mass. Gallbladder and biliary ducts: Normal. No calcified stones. No ductal dilation. Pancreas: Normal. No ductal dilation. Spleen: Normal. No splenomegaly. Adrenal glands: Normal. No mass. Kidneys and ureters: Normal. No hydronephrosis. Stomach and bowel: Small hiatal hernia. No obstruction. No mucosal thickening. Appendix: No evidence of appendicitis. Intraperitoneal space: Unremarkable. No free air. No significant fluid collection. Vasculature: Unremarkable. No abdominal aortic aneurysm. Lymph nodes: Unremarkable. No enlarged lymph nodes. Urinary bladder: Unremarkable as visualized. Reproductive: Unremarkable as visualized. Bones/joints: Cueto rods are present from the thoracic spine to L4. No loosening or fracture of the hardware is identified. Soft tissues: Unremarkable. CT/CT abdomen pelvis con [id number] IMPRESSION: 1. Mild increased density in the right middle lobe which may be atelectasis or early infiltrate. 2. Cueto rods in place unchanged. 3. Small hiatal hernia.
--- NOTE | 2025-04-05 10:42 | W.ED.NAVMDI ---
HPI - Nausea/Vomiting/Diarrhea General: Chief complaint: Nausea/Vomiting/Diarrhea Stated complaint: n/v Time Seen by Provider: 04/05/25 08:30 History of Present Illness: 24-year-old female presents emergency room via EMS patient is severely autistic is an episode of vomiting at the correction when he was brought in by EMS no other reported 0 particular probable he is nonverbal unable to give us any history. Patient has a history of pica and is attempting to place anything he can reach in his mouth. Related Data Home Medications ?Medication ?Instructions ?Recorded ?Confirmed bisacodyl 10 mg rectal suppository 10 mg VT DAILY PRN Constipation 05/12/22 04/05/25 acetaminophen 325 mg tablet 325 mg PO Q6H PRN Pain/fever 07/18/23 04/05/25 (Tylenol) magnesium hydroxide 400 mg/5 mL 30 ml PO DAILY PRN Constipation 07/18/23 04/05/25 oral suspension (Milk of Magnesia) polyethylene glycol 3350 17 gram 17 g PO DAILY@08 07/18/23 04/05/25 oral powder packet (Miralax) sodium phosphates 19 gram-7 118 ml VT DAILY PRN Constipation 07/18/23 04/05/25 gram/118 mL enema (Btwyt-[id number]-Iax Enema) ondansetron 4 mg disintegrating 4 mg PO Q8H PRN Nausea 09/26/23 04/05/25 tablet sucralfate 100 mg/mL oral 10 ml PO BID 04/05/25 04/05/25 suspension Previous Rx's ?Medication ?Instructions ?Recorded pantoprazole 40 mg tablet,delayed 40 mg PO Q12H 30 days #60 tabs 03/06/24 release (Protonix) Allergies Allergy/AdvReac Type Severity Reaction Status Date / Time adhesive Allergy ALGY-Bliste Verified 09/26/23 09:35 r adhesive tape Allergy ALGY-Bliste Verified 09/26/23 09:35 r metoclopramide (From Reglan) Allergy seizure Verified 09/26/23 09:35 Review of Systems General: Reports: ROS unobtainable due to mental status [facility] ED PFSH: Medical History Cerebral palsy Gastritis Surgical History Hx of brain surgery Surgical history unknown Social History Smoking and tobacco/nicotine status: never used tobacco/nicotine Housing: [facility] Physical Exam HENMT: COMMON NORMALS: normocephalic and atraumatic HEAD & SCALP: normocephalic and atraumatic Resp: COMMON NORMALS: normal respiratory effort, No retractions, No use of accessory muscles and clear to auscultation bilaterally AUSCULTATION: clear to auscultation bilaterally Cardio: COMMON NORMALS: regular rate, regular rhythm and No murmurs present (Cardio) RATE: regular rate RHYTHM: regular rhythm GI: COMMON NORMALS: Soft to palpation and No hepatosplenomegaly present AUSCULTATION: Yes normoactive bowel sounds PALPATION: Yes Soft to palpation, No Tenderness to palpation present (GI), No Guarding due to palpation present (GI) and Yes No hepatosplenomegaly present Extremity: COMMON NORMALS: normal to inspection, capillary refill normal, no clubbing, cyanosis or edema, no calf tenderness and no pedal edema Skin: COMMON NORMALS: no rashes or lesions noted GENERAL SKIN EXAM: no rashes or lesions noted Course Vital Signs: Vital signs: Vital Signs Temperature 98.1 F 04/05/25 08:29 Pulse Rate 101 H 04/05/25 11:29 Respiratory Rate 18 04/05/25 08:29 Blood Pressure 104/51 04/05/25 08:29 Pulse Oximetry 94 04/05/25 11:29 Oxygen Delivery Me thod Room Air 04/05/25 08:29 MDM - Nausea/Vomiting/Diarrhea Medical Decision Making No emergent findings CT negative labs unremarkable there are some blood in the urine is suspect that is traumatic from his catheterization. Discharge back to the correction suspect the vomiting is related to his pica. Lab Data 04/05/25 08:52 04/05/25 08:52 Radiology Impressions Chest X-Ray 04/05/25 08:54 IMPRESSION: Stable findings. Abdomen/Pelvis CT 04/05/25 10:42 IMPRESSION: 1. Mild increased density in the right middle lobe which may be atelectasis or early infiltrate. 2. Cueto rods in place unchanged. 3. Small hiatal hernia. Laboratory Results WBC 7.54 10^3/uL (3.29-11.43) 04/05/25 08:52 RBC 5.67 10^6/uL (3.85-5.65) H 04/05/25 08:52 Hgb 16.10 g/dL (11.27-16.99) 04/05/25 08:52 Hct 52.4 % (37-53) 04/05/25 08:52 MCV 92.4 fl (82-101) 04/05/25 08:52 MCH 28.4 pg (27-33) 04/05/25 08:52 MCHC 30.7 g/dL (30-55) 04/05/25 08:52 RDW 12.9 % (12.1-15.1) 04/05/25 08:52 Plt Count 250 10^3/cmm (157-399) 04/05/25 08:52 MPV 10.9 fL (7.4-10.4) H 04/05/25 08:52 Neut % (Auto) 58.9 % 04/05/25 08:52 Lymph % (Auto) 27.5 % 04/05/25 08:52 [place] % (Auto) 10.6 % 04/05/25 08:52 Eos % (Auto) 2.1 % 04/05/25 08:52 Baso % (Auto) 0.5 % 04/05/25 08:52 Neut # (Auto) 4.44 10^3/uL (1.8-7.7) 04/05/25 08:52 Lymph # (Auto) 2.1 10^3/uL (0.8-4.8) 04/05/25 08:52 [place]ascade # (Auto) 0.8 10^3/uL (0.2-0.9) 04/05/25 08:52 Eos # (Auto) 0.2 10^3/uL (0.0-0.8) 04/05/25 08:52 Baso # (Auto) 0.0 10^3/uL (0.0-0.1) 04/05/25 08:52 Nucleated RBC % (auto) 0 % 04/05/25 08:52 Nucleated RBCs # 0.0 /100WBC 04/05/25 08:52 Sodium 140 mmol/L (136-145) 04/05/25 08:52 Potassium 4.6 mmol/L (3.5-5.1) 04/05/25 08:52 Chloride 108 mmol/L (98-107) H 04/05/25 08:52 Carbon Dioxide 22 mmol/L (22-29) 04/05/25 08:52 Anion Gap 14.6 (5-19) 04/05/25 08:52 BUN 11 mg/dL (6-20) 04/05/25 08:52 Creatinine 0.5 mg/dL (0.7-1.2) L 04/05/25 08:52 GFR Calculation 207.9 mL/min (90-130) H 04/05/25 08:52 Glucose 101 mg/dL (65-115) 04/05/25 08:52 Calculated Osmolality 290 mOsm/kg (285-295) 04/05/25 08:52 Calcium 9.3 mg/dL (8.5-10.5) 04/05/25 08:52 Total Bilirubin 0.3 mg/dL (0.15-1.2) 04/05/25 08:52 AST 15 U/L (0-40) 04/05/25 08:52 ALT 24 U/L (0-41) 04/05/25 08:52 Alkaline Phosphatase 96 U/L (40-130) 04/05/25 08:52 Total Protein 7.6 g/dL (6.6-8.7) 04/05/25 08:52 Albumin 4.2 g/dL (3.5-5.2) 04/05/25 08:52 Globulin 3.4 g/dL (1.3-4.6) 04/05/25 08:52 Urine Color Red (Yellow) A 04/05/25 09:53 Urine Appearance Turbid (CLEAR) A 04/05/25 09:53 Urine pH TNP 04/05/25 09:53 Ur Specific [place] Not Reportable 04/05/25 09:53 Urine Protein Not Reportable 04/05/25 09:53 Urine Glucose (UA) Not Reportable 04/05/25 09:53 Urine Ketones Not Reportable 04/05/25 09:53 Urine Blood Not Reportable 04/05/25 09:53 Urine Nitrate Not Reportable 04/05/25 09:53 Urine Bilirubin Not Reportable 04/05/25 09:53 Urine Urobilinogen Not Reportable 04/05/25 09:53 Ur Leukocyte Esterase Not Reportable 04/05/25 09:53 Urine RBC Too numerous to cnt /hpf (0-2) H 04/05/25 09:53 Urine WBC 10-15 /hpf (0-5) H 04/05/25 09:53 Ur Squamous Epith Cells 0-4 /hpf (0-5) H 04/05/25 09:53 Amorphous Sediment Not Reportable 04/05/25 09:53 Urine Bacteria Trace /hpf (NONE) 04/05/25 09:53 Hyaline Casts 5-10 /lpf H 04/05/25 09:53 Urine Mucus 1+ /hpf 04/05/25 09:53 All radiology interpretation(s) finalized by discharge Discharge Plan Discharge Patient Disposition: Home Clinical Impression: Vomiting, Pica in adults Cerebral palsy Qualifiers: Cerebral palsy type: unspecified type Qualified Code(s): G80.9 - Cerebral palsy, unspecified Condition: Stable Prescriptions: No Action ondansetron 4 mg tablet,disintegrating 4 mg PO Q8H PRN (Reason: Nausea) bisacodyl 10 mg suppository 10 mg VT DAILY PRN (Reason: Constipation) acetaminophen [Tylenol] 325 mg Tablet 325 mg PO Q6H PRN (Reason: Pain/fever) polyethylene glycol 3350 [Miralax] 17 gram Powder In Packet 17 g PO DAILY@08 magnesium hydroxide [Milk of Magnesia] 400 mg/5 mL Suspension 30 ml PO DAILY PRN (Reason: Constipation) [id number] Enema 19-7 gram/118 mL Enema 118 ml VT DAILY PRN (Reason: Constipation) sucralfate 100 mg/mL Suspension 10 ml PO BID pantoprazole [Protonix] 40 mg Tablet,Delayed Release (Dr/Ec) 40 mg PO Q12H 30 Days Qty: 60 0RF Discharge Orders: Discharge ED (Routine); Ordered 04/05/25 Ordered By: Yordan Galindo Referrals: José Carlson Jr, MD [Primary Care Provider, Family Practice] Discharge Diet: Usual diet Discharge Activity: Resume usual activity Patient Instructions: Opioid Safety, Pain Management, Patient Portal & Avelina Instructions Activity Restrictions/Additional Instructions: Thank you for choosing [facility] for your healthcare needs today. It is very important that you follow up as instructed or that you return to the Emergency Department should you have concerns or if your condition changes or worsens in any way. You are seen in the emergency room with complaints of vomiting. Evaluation in the emergency room did not show any emergent conditions. Suspect the vomiting episode may be related to the pica. Will discharge you home and have you follow-up with your primary care doctor Print Language: [place] Citizen Coding Level of Care Code ED Intervention Nurse for Terrell Verma
[2025-04-05 11:29] VITALS: PULSE 101; O2SAT 94
[2025-04-05 11:59] VITALS: BP 111/98; PULSE 102; O2SAT 94
== END 2025-04-05 12:11 | disposition home or self-care (01) ==
PROVIDERS: Emergency Provider Family Medicine; PCP Family Medicine
DX: F50.83 Pica in adults (principal); R11.10 Vomiting, unspecified; G80.9 Cerebral palsy, unspecified; F84.0 Autistic disorder
CPT/HCPCS: 71045; 74176; 80053; 81003; 85025; 87086; 96374; 99285; J2405

== ENCOUNTER 2025-06-14 20:42 | Emergency (ER) | payer MEDICAID, SELFPAY ==
[2025-06-14 20:32] VITALS: BP 121/89; PULSE 119; RESP 18; TEMP 36.5; O2SAT 93; BMI 37.1
--- NOTE | 2025-06-14 20:41 | W.ED.NAVMDI ---
HPI - Nausea/Vomiting/Diarrhea General: Chief complaint: Nausea/Vomiting/Diarrhea Stated complaint: VOMITING History of Present Illness: Patient is 24-year-old male with cerebral palsy, nonverbal, resides at care facility, presents to the emergency room due to eating his diaper. Patient has a history of pica. Nursing staff caught him eating his diaper. He had nausea and vomiting x 1. This was earlier today. Phenergan IM was given, no more issues. No complaints from patient or staff. Related Data Home Medications ?Medication ?Instructions ?Recorded ?Confirmed bisacodyl 10 mg rectal suppository 10 mg OH DAILY PRN Constipation 05/12/22 04/05/25 acetaminophen 325 mg tablet 325 mg PO Q6H PRN Pain/fever 07/18/23 04/05/25 (Tylenol) magnesium hydroxide 400 mg/5 mL 30 ml PO DAILY PRN Constipation 07/18/23 04/05/25 oral suspension (Milk of Magnesia) polyethylene glycol 3350 17 gram 17 g PO DAILY@08 07/18/23 04/05/25 oral powder packet (Miralax) sodium phosphates 19 gram-7 118 ml OH DAILY PRN Constipation 07/18/23 04/05/25 gram/118 mL enema (Qjwmo-Wb-Wak Enema) ondansetron 4 mg disintegrating 4 mg PO Q8H PRN Nausea 09/26/23 04/05/25 tablet sucralfate 100 mg/mL oral 10 ml PO BID 04/05/25 04/05/25 suspension Previous Rx's ?Medication ?Instructions ?Recorded pantoprazole 40 mg tablet,delayed 40 mg PO Q12H 30 days #60 tabs 03/06/24 release (Protonix) prochlorperazine maleate 5 mg 5 mg PO Q8H PRN nausea and 06/14/25 tablet (Compazine) vomiting 48 hours #10 tabs Allergies Allergy/AdvReac Type Severity Reaction Status Date / Time adhesive Allergy ALGY-Bliste Verified 09/26/23 09:35 r adhesive tape Allergy ALGY-Bliste Verified 09/26/23 09:35 r metoclopramide (From Reglan) Allergy seizure Verified 09/26/23 09:35 Review of Systems General: Reports: 10 or more systems reviewed and unremarkable except in HPI and below and ROS unobtainable due to mental status PFSH ED PFSH: Medical History (Updated 06/14/25 @ 20:46 by CELIA Christiansen) Cerebral palsy Gastritis Surgical History Hx of brain surgery Surgical history unknown Social History Smoking and tobacco/nicotine status: never used tobacco/nicotine Housing: Alf Physical Exam Const: COMMON NORMALS: no acute distress, average body habitus, patient oriented x3 and healthy appearing; limitations HENMT: OTHER: Nonverbal well-appearing male. Lymph: LYMPHATIC: no lymphadenopathy noted Chest: COMMONS NORMALS: normal inspection of the chest and normal palpation of entire chest wall Resp: COMMON NORMALS: normal respiratory effort, No retractions and No use of accessory muscles GI: COMMON NORMALS: Normal to inspection, nondistended, normoactive bowel sounds present, Soft to palpation, non-tender, No hepatosplenomegaly present, no masses and no bruits PALPATION: Yes Soft to palpation and Yes No hepatosplenomegaly present : COMMON NORMALS: Yes no CVA tenderness BLADDER/KIDNEY EXAM: Yes no CVA tenderness Back/Pelvis: COMMON NORMALS: no CVA tenderness Extremity: NARRATIVE EXTREMITY EXAM: Contractures throughout all extremities, atrophy Neuro: COMMON NORMALS: patient oriented x3 Psych: COMMON NORMALS: mental status grossly normal, Normal thought process present and cooperative THOUGHT PROCESS: Normal thought process present Course Vital Signs: Vital signs: Vital Signs Temperature 97.7 F 06/14/25 20:32 Pulse Rate 119 H 06/14/25 20:32 Respiratory Rate 18 06/14/25 20:32 Blood Pressure 121/89 06/14/25 20:32 Pulse Oximetry 93 06/14/25 20:32 MDM - Nausea/Vomiting/Diarrhea Medical Decision Making Patient is a pleasantly 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 Unfortunately, he ate part of his diaper. There was no fecal contents in this diaper just diaper material. He had nausea and vomiting x 1. He received promethazine, and had no further issues. On physical examination, he has normal bowel sounds, and normal exam for him. There is no reason for any additional intervention. He will be sent home with [facility], advised to coordinate with poison control center for further concerns. Medical Records I reviewed the patient's medical records. No radiology studies performed this visit Discharge Plan Discharge Patient Disposition: Home Clinical Impression: Nausea & vomiting Qualifiers: Vomiting type: bilious vomiting Qualified Code(s): R11.14 - Bilious vomiting Condition: Stable Prescriptions: New prochlorperazine maleate [Compazine] 5 mg tablet 5 mg PO Q8H PRN (Reason: nausea and vomiting) 2 Days Qty: 10 0RF No Action ondansetron 4 mg tablet,disintegrating 4 mg PO Q8H PRN (Reason: Nausea) bisacodyl 10 mg suppository 10 mg OH DAILY PRN (Reason: Constipation) acetaminophen [Tylenol] 325 mg Tablet 325 mg PO Q6H PRN (Reason: Pain/fever) polyethylene glycol 3350 [Miralax] 17 gram Powder In Packet 17 g PO DAILY@08 magnesium hydroxide [Milk of Magnesia] 400 mg/5 mL Suspension 30 ml PO DAILY PRN (Reason: Constipation) Rtrnr-Cs-Dwl Enema 19-7 gram/118 mL Enema 118 ml OH DAILY PRN (Reason: Constipation) sucralfate 100 mg/mL Suspension 10 ml PO BID pantoprazole [Protonix] 40 mg Tablet,Delayed Release (Dr/Ec) 40 mg PO Q12H 30 Days Qty: 60 0RF Discharge Orders: Discharge ED (Routine); Ordered 06/14/25 Ordered By: Christin Beverly Referrals: José Carlson Jr, MD [Primary Care Provider, [facility]] Discharge Diet: Usual diet Discharge Activity: Resume usual activity Patient Instructions: Acute Nausea and Vomiting (ED), Patient Portal & Avelina Instructions Activity Restrictions/Additional Instructions: - No evidence of blockage at this time. - Please call poison control and coordinate needing to return to the ED. This includes not passing gas, ongoing nausea, and vomiting. - Compazine has been sent to the pharmacy and to with the patient in case he has nausea and vomiting. - Clear liquid diet until he tolerates, then may advance to his regular diet. Thank you for choosing [facility] for your healthcare needs today. You have been screened and evaluated and felt safe for discharge. Health conditions do change or evolve sometimes and as such it is important that you follow up with your Primary Doctor to be re checked, 3-5 days is a general good time frame for follow up. You are always welcome to return to the ED for re assessment if your symptoms are worsening or you have new concerns Print Language: Bulgarian Coding Level of Care Code ED Anchorer for Terrell Verma
--- OUTSIDE RECORDS SUMMARY | 2025-06-14 20:48 | XMS_ITS | Data Portability ---
Author Organization [facility] Brittani, Karolyn, [facility] Address [address] [place] [address] Assessment No assessment recorded. Plan of Treatment Reminders Order Date Submit Date Provider Last Modified By Organization Details Last Modified Time Details Appointments None record ed. Lab None record ed. Referral None record ed. Procedures None record ed. Surgeries None record ed. Imaging None record ed. Medication Orders None record ed. Patient TargetsNo targets recorded. Patient InstructionsNo instructions recorded. Reason for Referral None Reported. 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 5 16:41:10 Insomnia 931645963 Active 2024 Brenda Schrader null, [facility] 16:41:21 Allergic rhinitis 26564532 Active 2024 Brenda Schrader null, [facility] 16:41:30 Gastritis 2123377 Active 2024 Brenda Schrader null, [facility] 16:41:37 Cerebral palsy 293761769 Active 2024 Brenda Schrader null, [facility] 16:41:51 Anemia 924578231 Active 2024 Brenda Schrader null, [facility] 5 16:42:02 Gastrostomy Active 2024 Brenda Schrader null, [facility] 16:42:18 Epilepsy 89868569 Active 2024 Brenda Schrader null, [facility] 16:43:51 Vomiting 118253628 Active 2024 Brenda Schrader null, [facility] 5 16:43:59 [place] - lesion 295995789 Active 2024 Brenda Schrader null, [facility] 16:44:41 Dermatophyt osis 52390342 Active 2024 Brenda Schrader null, [facility] 5 16:44:54 Gastroesoph ageal reflux disease without esophagitis 796842903 [facility] 16:45:01 Nausea and vomiting 15807818 Active 2024 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 09:45:33 Problem Notes None recorded. Medical Equipment None Reported. Allergies Allergen ID Allergen Name Allergen Category Reaction Reaction Severity Criticality Documentation Date Start Date Code Code System Note Provider Name and Address Organization Details Recorded Time 45767 [facility] n Not available Not available Not available 09/12/2024 9230 [facility] 5 16:36:10 Medications Name Sig Start Date Stop Date Status Note LastModified by Organization Details LastModified Time sucralfate 100 mg/mL oral suspension Take 10 mL twice a day by oral route. active Not Available Not Available No t Available ondansetron HCl 4 mg tablet Take 1 tablet every 4 hours by oral route as needed. active Not Available Not Available N ot Available Milk of Magnesia 400 mg/5 mL oral suspension Take 30 mL every 24 hours by oral route as needed. active Not Available Not Available N ot Available Jqtch-Gb-Yaz Enema 19 gram-7 gram/118 mL Insert 118 mL every 24 hours by rectal route as needed. active Not Available Not Available No t Available bisacodyl 10 mg rectal suppository Insert 1 suppository every 24 hours by rectal route as needed. active Not Available Not Available No t Available pantoprazole 40 mg tablet,delay ed release Take 1 tablet twice a day by oral route. active Not Available Not Available No t Available ferrous sulfate 325 mg (65 mg iron) tablet Take 1 tablet every day by oral route. active Not Available Not Available No t Available Tylenol 325 mg tablet Take 2 tablets every 6 hours by oral route as needed. active Not Available Not Available N ot Available melatonin 1 mg tablet Take 1 tablet every day by oral route at bedtime. active Not Available Not Available No t Available polyethylene glycol 3350 give 17 g by mouth every day in the morning active Not Available Not Available No t Available Vitals Date Recorded Body height Body mass index (BMI) Body weight Oxygen saturation Oxygen saturation in Arterial blood by Pulse oximetry Heart rate Respiratory rate Body temperature Systolic And Diastolic Provider Name and Address Organization Details Last Updated DateTime 5 154.94 cm 27 kg/m2 76279.7 1 g 94 % 94 % 100 /min 21 /min 97.7 [degF] 107/70 mm[Hg] [facility] 5 09:41:14 Date Recorded Body height Body mass index (BMI) Body weight Oxygen saturation Oxygen saturation in Arterial blood by Pulse oximetry Heart rate Respiratory rate Body temperature Systolic And Diastolic Provider Name and Address Organization Details Last Updated DateTime 5 154.94 cm 29.1 kg/m2 28846.2 2 g 92 % 92 % 75 /min 18 /min 97 [degF] 141/74 mm[Hg] [facility] 5 09:44:30 Date Recorded Body height Body mass index (BMI) Body weight Oxygen saturation Oxygen saturation in Arterial blood by Pulse oximetry Heart rate Respiratory rate Body temperature Systolic And Diastolic Provider Name and Address Organization Details Last Updated DateTime 5 154.94 cm 28.5 kg/m2 20172.4 5 g 93 % 93 % 70 /min 20 /min 97.7 [degF] 132/72 mm[Hg] [facility] 5 10:30:32 Date Recorded Body height Body mass index (BMI) Body weight Oxygen saturation Oxygen saturation in Arterial blood by Pulse oximetry Heart rate Respiratory rate Body temperature Systolic And Diastolic Provider Name and Address Organization Details Last Updated DateTime 5 154.94 cm 27.6 kg/m2 26291.4 9 g 97 % 97 % 91 /min 21 /min 97.3 [degF] 130/70 mm[Hg] [facility] 5 08:22:21 Date Recorded Body height Body mass index (BMI) Body weight Oxygen saturation Oxygen saturation in Arterial blood by Pulse oximetry Heart rate Respiratory rate Body temperature Systolic And Diastolic Provider Name and Address Organization Details Last Updated DateTime 5 154.94 cm 27.6 kg/m2 63674.4 9 g 94 % 94 % 77 /min 18 /min 98.1 [degF] 89/60 mm[Hg] Brenda Schrader [facility] 5 08:48:39 Social History None recorded. Functional Status None recorded. Mental Status None recorded. Family History Nothing Reported. Medical History No medical history recorded. Immunizations Vaccine Type Date Status Note Provider Nam e and Address Organization Details Recorded Time IPV 8 completed Brenda cleary [facility] 09/13/2024 12:23:41 IPV 3 completed Brenda cleary [facility] 09/13/2024 12:23:41 IPV 3 completed Brenda cleary [facility] 09/13/2024 12:23:41 [facility] 09/13/2024 12:23:41 Influenza, live, trivalent, intranasal, PF 9 completed Brenda cleary [facility] 09/13/2024 12:23:41 Influenza, live, trivalent, intranasal, PF 0 completed Brenda cleary [facility] 09/13/2024 12:23:41 [facility] 4 [facility] 09/13/2024 12:23:41 MMR 8 completed Brenda cleary [facility] 09/13/2024 12:23:41 pneumococcal conjugate PCV 7 5 completed Brenda Schrader [facility], [facility] 09/13/2024 12:23:41 pneumococcal conjugate PCV 7 3 completed Brenda Schrader [facility] 09/13/2024 12:23:41 pneumococcal conjugate PCV 7 3 completed Brenda Schrader [facility], [facility] 09/13/2024 12:23:41 Tdap 8 completed Brendatrisha Schrader [facility] 09/13/2024 12:23:41 varicella 4 completed Brenda Schrader [facility] 09/13/2024 12:23:41 varicella 8 completed Brendatrisha Torrese [facility] 09/13/2024 12:23:41 Hep B, unspecified formulation 3 completed Brenda Schrader [facility] 09/13/2024 12:23:41 Influenza, split virus, trivalent, preservative 7 completed Brendatrisha Torrese [facility], [facility] 09/13/2024 12:23:41 Influenza, split virus, trivalent, preservative 5 completed Brenda Schrader [facility], [facility] 09/13/2024 12:23:41 Influenza, split virus, trivalent, PF 6 completed Brendatrisha Torrese [facility] 09/13/2024 12:23:41 Hep B, adolescent or pediatric 3 completed Brenda Schrader [facility] 09/13/2024 12:23:41 Hep B, adolescent or pediatric 3 completed Brenda Schrader null, [facility] 09/13/2024 12:23:41 Hep A, ped/adol, 2 dose 8 completed Brenda Schrader null, [facility] 09/13/2024 12:23:41 Hep A, ped/adol, 2 dose 9 completed Brenda Schrader null, [facility] 09/13/2024 12:23:41 Hib (PRP-T) 4 completed Brenda Schrader null, [facility] 09/13/2024 12:23:41 Hib (PRP-T) 3 completed Brenda Schrader null, [facility] 09/13/2024 12:23:42 Hib (PRP-T) 3 completed Brenda Schrader null, [facility] 09/13/2024 12:23:42 Hib (PRP-T) 3 completed Brenda Schrader null, [facility] 09/13/2024 12:23:42 meningococcal MCV4P 0 completed Brenda Schrader null, [facility] 09/13/2024 12:23:42 DTaP 8 completed Brenda Schrader null, [facility] 09/13/2024 12:23:42 DTaP 5 completed Brenda Schrader null, [facility] 09/13/2024 12:23:42 DTaP 3 completed Brenda Schrader null, [facility] 09/13/2024 12:23:42 DTaP 3 completed Brenda Torrese madiha, [facility] 09/13/2024 12:23:42 DTaP 3 completed Brenda Schrader null, [facility] 09/13/2024 12:23:42 meningococcal MCV4, unspecified formulation 4 completed Brenda Schrader null, [facility] 09/13/2024 12:23:42 Past Encounters Encounter ID Performer Location Encounter Start Date Encounter Closed Date Diagnosis/Indication Diagnosis SNOMED-CT Code Diagnosis ICD10 Code Diagnosis IMO Codes Diagnosis Note [id number] Harpal Hutchins DO [facility]) [address] [place], [place] [phone] 09/13/2024 08:53:38 10/01/2024 06:54:31 Cerebral palsy 031953323 G80.9 stable. 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 [id number] Harpal Hutchins DO [facility]) [address] [place], [place] [phone] 11/08/2024 08:55:12 11/08/2024 22:43:56 Cerebral palsy 134486198 G80.9 stable. 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 [id number] Harpal Hutchins DO [facility]) [address] [place], [place] [phone] 01/10/2025 08:59:54 01/13/2025 11:55:36 Epilepsy 49254062 G40.909 Stable. Cerebral palsy 190233243 G80.9 stable. [id number] Harpal Hutchins DO [facility] ([facility]) [address] [place] [phone] 03/07/2025 07:57:45 03/16/2025 20:43:58 Epilepsy 58559853 G40.909 Stable. Cerebral palsy 531128008 G80.9 stable. [id number] Harpal Hutchins DO [facility] ([facility]) [address] [place] [address] 04/18/2025 08:15:37 04/22/2025 12:06:40 Hematemesis 1587635 K92.0 [id number] Single episode, likely from oral trauma, no recurrence , will keep dangerous objects away from pt's mouth. [id number] Harpal Hutchins DO [facility] ([facility]) [address] [place] [address] 05/02/2025 08:15:34 05/06/2025 14:54:01 Nausea and vomiting 00664305 R11.2 05/02/25: intermitte nt, no changes today. 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 Health Concerns Section Related Observation LastModified by Organization Detai ls LastModified Time None Recorded Concern Status LastModified by Organization Details LastModified Time None Recorded Advance Directives Directive None Recorded Payers Insurance Date Sequence Insurance Name Policy Number Policy Hardwick Covered Member ID Hardwick Member ID Guarantor Name 04/17/2025 1 [id number] 04/17/2025 [place] [facility] Mikal Edgar [id number] Mikal Edgar Notes Date Note Type Note Provider Name and Address Organization Details Recorded Time 11/08/2024 text/html ROS as noted in the HPI We are evaluating pt today [place] for routine f/u. Pt in their usual state and doing well. Harpal Hutchins DO [address] [place] [address], [phone], [facility] 11/08/2024 15:13:27 01/10/2025 text/html ROS as noted in the HPI We are evaluating pt today [place] [facility] for routine f/u. Pt in their usual state and doing well. He has gained 4 lbs since 11/14/24. Harpal Hutchins DO [address] [place] [address], [phone], [facility], [place]. 01/10/2025 14:29:33 03/07/2025 text/html ROS as noted in the HPI We are evaluating pt today [place] [facility] for routine f/u. Pt in their usual state and doing well. Harpal Hutchins DO [address] [place] [address], [phone], [facility], [place]. 03/07/2025 15:27:28 04/18/2025 text/html ROS as noted in the HPI The patient is currently at resident at [facility] in [place].We are evaluating pt today for acute issues and concerns. He recently ate pieces of a rubber lego. He was recently coughing up some blood, bright red. PR advised to monitor, since bright red likely not r/t esophagus. PR has been monitoring, no recurrence, last occurred on 04/13/25. BP reading well. Lab 04/10/25:K+ 4.4, Cr 0.55, Hgb 16.7, Transaminases wnl. Harpal Hutchins DO [address] [place] [address], [phone], [facility], [place]. 04/18/2025 09:43:09 05/02/2025 text/html ROS as noted in the HPI We are seeing pt in [place] today for acute illness, vomiting. He has been vomiting some, intermittently.No vomiting last night. Harpal Hutchins DO [address] [place] [address], [phone], [facility], [place]. 05/02/2025 09:16:03
== END 2025-06-14 21:52 | disposition home or self-care (01) ==
PROVIDERS: Emergency Provider Physician Assistant; PCP Family Medicine
DX: R11.14 Bilious vomiting (principal)
CPT/HCPCS: 99283